=== PATIENT | female | born 1935 | race Asian ===

== ENCOUNTER 2019-03-22 07:49 | Inpatient (IN) | payer OTHER, MEDICAID ==
[2019-03-22] VITALS (11 sets, daily range): BP systolic 90–143; BP diastolic 54–94
[~2019-03-22] VITALS: Ht 157.5 cm; Wt 54.4 kg
--- NOTE | 2019-03-22 08:12 | NUR ---
LAB AT BEDSIDE
--- NOTE | 2019-03-22 08:20 | NUR ---
PT BROUGHT IN BY [facility] STS THAT PT WAS ALOC. PER [facility] PT WAS GCS3 AND NON VERBAL. PER [facility] PT HAS A GTUBE THAT WAS BACKED UP AND NOTICED SOME FLUIDS COMING FROM PTS MOUTH. IV NOTED ON PTS RIGHT WRIST 24G NON PATENT DATED FROM 03/18/19. PER MEDIC PT HAS PACEMAKER RIGHT UPPER CHEST. UPON ASSESSMENT PT IS GRIMICING AND NOT ANSWERING ANY QUESTIONS. PT HAD SOME FLUIDS COMING FROM MOUTH WHICH WERE A WHITE/YELLOW SUBSTANCE. PT HAS GT NOTED ON MID UPPER ABDOMINAL. PT WILL NOT RESPOND TO QUESTIONS. PT WILL NOT OPEN EYE AND HAS THEM SQUEEZED SHUT. PT HAS MOUTH WIDE OPEN WITH MOANING NOISES. +PEDAL,+CAP REFILL BILATERAL UPPER AND LOWER EXTREMITIES. SKIN WNL. PT SUCTIONED 200ML WHITE/YELLOW FLUIDS. EMT BEDSIDE FOR EKG. WHITE INSERTED. WILL CONTINUE TO MONITOR.
[2019-03-22 08:43] LABS: PLATELET COUNT 343 x10^3mcL (130-400); RED CELL DISTRIBUTION WIDTH 13.9 % (11.5-14.5)
[2019-03-22 08:52] LABS: CALCIUM 9.1 mg/dL (8.5-10.1); CARBON DIOXIDE 32.7 mmol/L (21-32); CHLORIDE SERUM 105 mmol/L (98-107); CREATININE SERUM 0.8 mg/dL (0.6-1.0); GLUCOSE SERUM 150 mg/dL (74-106); POTASSIUM SERUM 4.4 mmol/L (3.5-5.1); SODIUM SERUM 144 mmol/L (136-145)
[2019-03-22 08:55] LABS: ALT/SGPT 7 U/L (14-59); AST/SGOT 12 U/L (15-37)
[2019-03-22 08:56] LABS: ALBUMIN 2.7 g/dL (3.4-5.0)
--- NOTE | 2019-03-22 09:11 | NUR ---
UNABLE TO GIVE PT MED DUE TO PT NOT BEING ABLE TO SWALLOW PILLS. PT HAS GAG REFLUX. PT DAUGHTER REQUESTING TO CRUSH SINEMET 50/200 BUT CANNOT DUE TO ER. DAUGHTER INFORMED [facility] [place] GIVE MED CRUSHED IN GT. DR. KENNEDY INFORMED DAUGHTER WELL. DAUGHTER STS THAT GUADARRAMA ZAC CRUSHES 50/200. PER DAUGHTER PT WAS UP WALKING AND EATING 2 WEEKS AGO. WILL CONTINUE TO MONITOR.
[2019-03-22 09:12] LABS: ALKALINE PHOSPHATASE 66 U/L (46-116); BILIRUBIN TOTAL 0.36 mg/dL (0.20-1.00)
[2019-03-22 09:28] LABS: UA SPECIFIC GRAVITY 1.025 (1.005-1.035); microscopic required? YES; urine erythrocyte NEGATIVE (NEGATIVE)
--- NOTE | 2019-03-22 10:02 | NUR ---
PT STILL HAS MOUTH OPEN WITH SOME MOANING. PER DAUGHTER PT DOES NOT USUALLY BREATH LIKE THIS. EXRTA ABDOMINAL MOVEMENTS WITH BREATHING. DR. KENNEDY INFORMED AND MADE AWARE. SEPSI PROTOCOL IN PLACE. PT ON SECOND LITER.
[2019-03-22 10:03] LABS: BAND NEUTROPHIL 6 % (0-10); BASOPHIL 0 % (0-2); MONOCYTE 5 % (0-7); SEGMENTED NEUTROPHILS 86 % (37-75)
[2019-03-22 10:08] LABS: rbc morphology (normal/abnorm) ABNORMAL (NORMAL)
--- NOTE | 2019-03-22 10:25 | NUR ---
PT HAD MOUTH OPEN WITH EXTRA ABDOMINAL MUSCLES TO BREATH. PT VITALS WERE LOWERING AND MADE MADE AWARE. [address] KENNEDY AWARE OF PT BP 73/34 AND HR 43. RT MADE AWARE OF PT AND CAME TO BEDSIDE. 1029 ATROPINE 0.5 [id number] LEVOPHED 10/ML/HR 1036 DAT 7ML 1037 INTUBATION INITIATED. PT TOLERATED WELL. 10[address]ACED RIGHT SUBCL.
--- NOTE | 2019-03-22 11:00 | NUR ---
PT TOLERATED INTUBATION WELL. FAMILY AT BEDSIDE. VSS. RESP 18BPM ON BPAP. HR 110. BP131/88. +PEDAL PULSES +CAP REFILLL UPPER AND LOWER EXTREMITIES. URINE OUTPUT 1000ML. AT BEDSIDE FOR MSE.
--- NOTE | 2019-03-22 11:15 | NUR ---
PT TOLERATING WELL. VSS. RESP 18BPM. HR 109 BP 127/86. WILL CONTINUE TO MONITOR
--- NOTE | 2019-03-22 11:58 | NUR ---
PT COMFORTABLE WITH SEDATION. NO SIGNS OF DISTRESS. VSS. FAMILY AT BEDSIDE. WILL CONTINUE TO MONITOR.
--- NOTE | 2019-03-22 11:59 | NUR ---
FAMILY STS THAT PT USUALLY ON CPAP AT HOME.
--- NOTE | 2019-03-22 12:22 | NUR ---
RT AT BEDSIDE. SUCTIONED PT.
--- NOTE | 2019-03-22 12:26 | NUR ---
DR. ASHLEY AT BEDSIDE SPEAKING WITH FAMILY.
--- NOTE | 2019-03-22 12:52 | NUR ---
REPORT GIVEN TO ICU NURSE TO ASSUME CARE OF PT.
--- NOTE | 2019-03-22 13:10 | NUR ---
PT TAKEN TO ICU BY MERE PEARL, EMT CURT.
--- NOTE | 2019-03-22 13:44 | NUR ---
PATIENT WAS TRANSPORTED FROM ER TO ICU WITH NO ADVERSE EVENTS. PT WAS TAKEN OFF THE VENT AND TRANSPORTED VIA AMBU BAG, SPO2 REMAINED 96% DURING TRANSPORT. PT WAS THEN PLACED BACK ON THE VENT ONCE IN ICU ON SAME SETTINGS BEFORE. AMBU AND MASK BEDSIDE. VENT IN RED OUTLET IN ICU AND WHEELS LOCKED.
[2019-03-22] MEDS ORDERED: SINEMET 25-1001 TAB GT (13:53)
--- NOTE | 2019-03-22 15:51 | NUR ---
1400 HHN TX MISSED DUE TO UNREVIEWED ORDER/MISSING HHN ORDER.
--- NOTE | 2019-03-22 17:13 | NUR ---
DR CARMEN CALLED, ALL UPDATES PROVIDED. PER DR CARMEN, HE WOULD LIKE TO KEEP VANCOMYCIN AND ALSO ORDER ZOSYN, 3.375 IV Q8.
--- NOTE | 2019-03-22 19:04 | NUR ---
REPORT GIVEN TO GURINDER, ALL QUESTIONS ANSWERED.
--- NOTE | 2019-03-22 19:05 | NUR ---
RECEIVED REPORT FROM JOSELITO PEARL. ASSUMING ALL CARE
--- NOTE | 2019-03-22 19:30 | NUR ---
RECEIVED PT LAYING IN BED. PT IS INTUBATED AND SEDATED ON FENTANYL @ 2 MCG/KG/HR. RSS=4. PT RESPONDS TO TACTILE STIMULI. PT NOT ABLE TO FOLLOW COMMANDS AT THIS TIME. GAG REFLEX PRESENT. PERRLA NOTED BILAT, 3 MM. 7.5 ETT INTACT/SECURED, 22 CM @ LL. LIJ CVC IN PLACE, ALL PORTS PATENT, DRESSING CDI. OGT IN PLACE. SMALL AMOUNT OF BLOOD-TINGED SECRETIONS NOTED WHEN SUCTION. ORAL CARE PROVIDED PER VAP PROTOCOL. BREATHING IS E/U ON VENT. VENT SETTINGS: VCV/AC MODE, RATE 18, FIO2 50%, VT 450, PEEP 6. SYMMETRICAL CHEST EXPANSION NOTED. COURSE CRACKLES NOTED TO BUL AND DIMIN TO BLL. S1/S2 HEART SOUNDS AUSCULTATED. CHEST WALL EQUAL AND SYMMETRICAL. NO S/S OF CP NOTED. HR 87, BP 115/68, MAP 86. PALPABLE PULSES X4 EXTREMITIES. SKIN IS WARM AND DRY. NO EDEMA NOTED. CAP REFILL < 3 SECS. RFA AND LH IV IN PLACE, SALINE LOCKED. NS INFUSING @ 250 ML/HR. GENERALIZED WEAKNESS. PT ON BEDREST. NO JOINT SWELLING/DEFORMITY NOTED. PT NPO AT THIS TIME. PEG NOTED TO LUQ. ABD IS SOFT, ROUND, NONTENDER TO PALPATION. BOWEL SOUNDS ACTIVE X4 QUADRANTS. NO BM NOTED. PT WITH WHITE IN PLACE, DRAINING VIA GRAVITY WITH YELLOW COLORED URINE NOTED. NO LABIAL EDEMA NOTED. ERYTHEMA NOTED TO SACRAL AREA, OPTIFOAM IN PLACE. PT REPOSITIONED Q2H AND PRN FOR COMFORT. AXILLARY TEMP 101. COOLING MEASURES IN PLACE. PT IS CALM AND COOPERATIVE. FAMILY AT BEDSIDE. BED IN LOW POSITION. CALL LIGHT IN REACH. WILL CONT TO MONITOR
--- NOTE | 2019-03-22 19:32 | NUR ---
AXILLARY TEMP 101. PT MEDICATED WITH TYLENOL 650 MG PER EMAR. COOLING MEASURES IN PLACE. WILL CONT TO MONITOR
--- NOTE | 2019-03-22 20:15 | NUR ---
DR. BUTCHER MADE AWARE SINEMET 25/100 MG TAB IS ORDERED FOR 19:30. SINEMET 50/200 MG TAB ORDERED FOR 21:00, MADE AWARE TAB IS CONTROLLED-RELEASED AND PT HAS A PEG. PER DR. BUTCHER, ADMINISTER SINEMET 25/100 MG TAB ONLY.
--- NOTE | 2019-03-22 21:15 | NUR ---
NOTED PT ATTEMPTING TO PULL ON ETT. PT EDUCATED ON IMPORTANCE OF NOT PULLING ON ETT, FAMILY AT BEDSIDE TRANSLATING IN MANDARIN. PT SHAKING HEAD NO. PER FAMILY MEMBERS, THEY WILL STAY WITH THE PT AT BEDSIDE. WILL CONT TO MONITOR.
--- NOTE | 2019-03-22 22:00 | NUR ---
ENTERED PT'S ROOM TO FIND PT ATTEMPTING TO PULL ON ETT. PT EDUCATED ON IMPORTANCE OF NOT PULLING ON TUBE. FAMILY AT BEDSIDE. PER PT'S DAUGHTER, OK TO PLACE PT ON RESTRAINTS. ORDER OBTAINED AND PT PLACED ON BILAT SOFT WRIST RESTRAINTS AT THIS TIME, GOOD CIRCULATION NOTED BILAT.
--- NOTE | 2019-03-22 23:30 | NUR ---
DR. CARMEN AT BEDSIDE. UPDATED ON PT'S STATUS. MADE AWARE PHARMACY DID NOT VERIFY ZOSYN ABX D/T PT'S ALLERGY TO PCN. PER DR. CARMEN, LEE ZOSYN AND ADMINISTER MERREM 500 MG IV Q8H. PER DR. CARMEN, OK TO GIVE MED EVEN THOUGH PT HAS ALLERGY TO PCN. WILL CARRY OUT ORDER
[2019-03-23] VITALS (17 sets, daily range): BP systolic 96–136; BP diastolic 56–77
--- NOTE | 2019-03-23 00:15 | NUR ---
VITAL AF TUBE FEEDING INITIATED AT THIS TIME @ 10 ML/HR WITH 50 CC FWF Q4H VIA PEG. OGT REMOVED AT THIS TIME.
--- NOTE | 2019-03-23 04:15 | NUR ---
TF INCREASED TO 20ML/HR, GRV=0.
[2019-03-23 05:09] LABS: BASOPHIL % 0.1 % (0-2); PLATELET COUNT 214 x10^3mcL (130-400); RED CELL DISTRIBUTION WIDTH 13.8 % (11.5-14.5)
[2019-03-23 05:27] LABS: CALCIUM 7.1 mg/dL (8.5-10.1); CARBON DIOXIDE 25.7 mmol/L (21-32); CHLORIDE SERUM 112 mmol/L (98-107); CREATININE SERUM 0.6 mg/dL (0.6-1.0); GLUCOSE SERUM 127 mg/dL (74-106); POTASSIUM SERUM 3.4 mmol/L (3.5-5.1); SODIUM SERUM 144 mmol/L (136-145)
--- NOTE | 2019-03-23 05:59 | NUR ---
TEMP RECHECKED, 100.1. COOLING MEASURES AND TYLENOL PROVIDED. DR BLOUNT MADE AWARE.
--- NOTE | 2019-03-23 06:00 | NUR ---
TEMP RECHECKED, 100.1. COOLING MEASURES AND TYLENOL PROVIDED.
--- NOTE | 2019-03-23 07:10 | NUR ---
REPORT RECEIVED FROM RYANNE BACA. ALL QUESTIONS ANSWERED.
--- NOTE | 2019-03-23 07:15 | NUR ---
PATIENT IN BED, BED TO THE LOWEST POSITION. PATIENT IS INTUBATED, ETT 7.5 CM AT 22 LL. PATIENT IS SEDATED ON FENTANYL INFUSING AT 2 MCG/KG/HR. RSS: 4 PATIENT IS VENTED ON AC MODE AT A RATE OF 18, FIO2 OF 50%, TIDAL VOLUME OF 450 AND PEEP OF 6. PATIENT IS BREATHING ADEQUATELY AND THERE ARE NO SIGNS OF RESPIRATORY DISTRESS. EKG MONITOR TECH IN PLACE, NSR. PATIENT HAS L SUBCLAVIAN CVC. R UPPER CHEST DEEP STIMULATOR. ABD ROUND AND SOFT. WHITE INTACT AND DRAINING VIA GRAVITY. NO BM PER NIGHT NURSE. PATIENT HAS TUBE FEEDINGS INFUSING AT 20 ML/HR WITH 50 FWF Q4. PATIENT IS ON BILATERAL SOFT WRIST RESTRAINTS. NORMAL SALINE IS INFUSING AT 250 ML/HR.
--- NOTE | 2019-03-23 08:32 | NUR ---
PER RT, PATIENT FIO2 TO 40%. PATIENT STABLE, WILL CONTINUE TO MONITOR.
--- NOTE | 2019-03-23 10:09 | NUR ---
PER RT, PATIENTS FIO2 30%. PATIENT STABLE, WILL CONTINUE TO MONITOR.
--- NOTE | 2019-03-23 11:45 | NUR ---
PATIENT HAD A TEMP OF 100. COOLING MEASURES APPLIED. WILL CONTINUE TO MONITOR.
--- NOTE | 2019-03-23 13:28 | NUR ---
DR STEPHENS AT BEDSIDE. ALL UPDATES PROVIDED. NO FURTHER ORDERS AT THIS TIME.
--- NOTE | 2019-03-23 13:41 | NUR ---
PATIENTS TEMPERATURE 100.6, TWO CONSECUTIVE TIMES. MEDICATED WITH TYLENOL(SEE EMAR) AND COOLING MEASURES APPLIED. WILL CONTINUE TO MONITOR.
--- NOTE | 2019-03-23 15:38 | NUR ---
PER ABDIEL, ROLLER COASTER ENGINEER, HAVE A TELE NEURO DONE, FOR PATIENT, ON INPUT ON CORRECT DOSAGE FOR SINEMET. CALLED TELE NEURO, SPOKE WITH [facility]. PATIENTS H/P, MEDICATION LIST, CURRENT VITALS, RADIOLOGY REPORTS, PROGRESS NOTE, AND PATIENT LABS FAXED OVER TO [facility]: [phone]. WILL AWAIT FAX CONFIRMATION.
--- NOTE | 2019-03-23 17:50 | NUR ---
TELE NEURO COMPLETED AT THIS TIME. SPOKE WITH DR ELEONORA KINGSTON. DR RECOMMEDS THE FOLLOWING: SUM OF THE PATIENTS NORMAL REGIMEN ON SHORT ACTING SINEMET, AND DIVIDE IT BY 5 TIMES A DAY. FRANCINE TABOR AND TIARA AT BEDSIDE, WERE CONFUSED TO WHY THE PATIENT CAN NOT RECEIVE THE LONG ACTING DOSAGE. THE DR EXPLAINED TO THE PATIENT THAT IT CAN NOT BE CRUSHED. ALSO THE DR EXPLAINED THAT HE DOES NOT THINK THAT SINEMET WILL CURE THE PATIENTS PROBLEM. THE DOCTOR EXPLAINED THAT SEPSIS AND INTUBATION IS THE CURRENT PROBLEM. THE GOAL FOR THE PATIENT IS TO GET THE SEPSIS UNDER CONTROL, AND EVENTUALLY REMOVE THE PATIENT FROM THE VENT. FRANCINE MENJIVAR AND SHARONA UNDERSTOOD. NO FURTHER QUESTIONS OR ORDERS AT THIS TIME. WILL NOTIFY NOE MEADOWS.
--- NOTE | 2019-03-23 18:00 | NUR ---
ABDIEL DEBARKER OPERATOR NOTIFIED. PER ABDIEL FOLLOW UP WITH PHARMACY AND ALSO CANCEL NS 250ML/HR. NO FURTHER ORDERS AT THIS TIME.
--- NOTE | 2019-03-23 18:13 | NUR ---
PHARMACIST NOTIFIED AT THIS TIME. PER PHARMACIST: HAVE FAMILY BRING IN SHORT ACTING SINEMET HOME MED, PHARMACIST WANTS TO CONFIRM THE DOSAGE THAT THE PATIENT WAS RECEIVING. FAMILY MADE AWARE, AND PATIENTS WILL BRING.
--- NOTE | 2019-03-23 18:18 | NUR ---
PHARMACY CALLED AT THIS TIME, AND NOTIFIED THAT THERE IS ONLY 50 MINS LEFT FOR THE FENANYL DRIP AT THIS TIME. PER PHARMACY, WILL START TO MIX BAG.
--- NOTE | 2019-03-23 18:35 | NUR ---
PER RT FIO2 AT 30%. PATIENT STABLE, WILL CONTINUE TO MONITOR.
--- NOTE | 2019-03-23 19:04 | NUR ---
REPORT GIVEN TO RYANNE BACA. ALL QUESTIONS ANSWERED.
--- NOTE | 2019-03-23 19:30 | NUR ---
REC'D REPORT FROM JOSELITO PEARL TO ASSUME CARE. PT INTUBATED AND SEDATED ON FENTANYL 1 MCG/KG/HR WITH RSS 4. PERRLA NOTED. UNABLE TO FOLLOW COMMANDS. 7.5 ETT SECURED, 22 CM @ LL. NO JVD NOTED. TRACHEA MIDLINE. EENT FREE OF DISCHARGE. ETT TO VENT: AC MODE RATE 18, TV 450, PEEP 6, FIO2 30%. CHEST RISE EQUAL AND SYMMETRICAL. LUNG SOUNDS CLEAR BUL, DIM BASES. OIL TANKER CAPTAIN IN PLACE SHOWING NSR. BP 129/73 MAP 97, HR 82. CHEST WALL STABLE. LEFT SUBCLAVIAN CVC, INTACT, PORTS PATENT. PULSES PALPABLE X4. CAP REFILL < 3 SECS. NO EDEMA NOTED. IVF NS INFUSING @ 70ML/HR. HEPARIN SQ ORDERED FOR DVT PROPHYLAXIS. REQUIRES TOTAL CARE ASSISTANCE. TURNED AND REPOSITIONED Q2H FOR PRESSURE RELIEF. BUE SOFT WRIST RESTRAINTS FOR PT SAFETY. LUQ PEG TUBE INTACT AND PATENT. VITAL AF INFUSING @30 ML/HR, FWF 50ML Q4H.ABD ROUND, SOFT, NONTENDER TO TOUCH. BOWEL SOUNDS ACTIVE. NO EPISODES OF N/V NOTED. F/C INTACT AND DRAINING VIA GRAVITY YELLOW COLORED URINE. NO VAGINAL BLEEDING OR DISCHARGE NOTED. ERYTHEMA TO SACRAL AREA. SKIN WARM DRY TO TOUCH. TEMP 100.5 F, TYLENOL AND COOLING MEASURES PROVIDED. RIGHT UPPER CHEST DEEP STIMULATION FOR PARKINSONS IN PLACE. POSITIVE FAMILY SUPPORT AT BEDSIDE. ALL NEEDS MET AT THIS TIME. CONTACT PRECAUTIONS APPLIED AND MAINTAINED IN PLACE FOR HX MDRO. WILL CONTINUE TO MONITOR.
--- NOTE | 2019-03-23 22:33 | NUR ---
PT SEEN SB WITH HR 47-50. DR CANCINO MADE AWARE. STATES WILL ORDER EKG ON CONTINUE TO MONITOR. FENTANYL TITRATED TO 0.5 MCG/KG/HR.
--- NOTE | 2019-03-23 23:23 | NUR ---
REPORTED PTS EKG TO DR CANCINO, MADE AWARE PT WITH CONTINUED EPISODES OF BRADYCARDIA 47-50. NO NEW ORDERS GIVEN. DR CANCINO STATES CONTINUE TO MONITOR.
--- NOTE | 2019-03-23 23:30 | NUR ---
PTS HR 46-50, FENTANYL TURNED OFF AT THIS TIME. FLACC=0. RSS=4.
[2019-03-24] VITALS (19 sets, daily range): BP systolic 95–145; BP diastolic 33–87
--- NOTE | 2019-03-24 00:04 | NUR ---
DR CARMEN AT BEDSIDE. MADE AWARE REGARDING EPISODES OF ELEVATED TEMP. CONTINUE SAME ATBS AND CONTINUE TO MONITOR.
--- NOTE | 2019-03-24 03:13 | NUR ---
TEMP 100.0 F, COOLING MEASURES PROVIDED WITH TYLENOL. PTS DAUGHTER AT BEDSIDE INFORMED DO NOT PUT WARM BLANKETS ON PT D/T ELEVATED TEMP, VERBALIZED UNDERSTANDING.
--- NOTE | 2019-03-24 04:44 | NUR ---
COOL BED BATH PROVIDED. NO BM NOTED. LINENS CHANGED. F/C AND VAP CARE PROVIDED. TURNED AND REPOSITIONED Q2H FOR PRESSURE RELIEF.
--- NOTE | 2019-03-24 05:13 | NUR ---
PT AWAKE WITH EYES OPEN, RESTLESS, BP 151/74. FENTANYL TURNED ON @ 0.5 MCG/KG/HR.
[2019-03-24 05:47] LABS: PLATELET COUNT 186 x10^3mcL (130-400)
[2019-03-24 05:55] LABS: BASOPHIL % 0 % (0-2)
[2019-03-24 05:57] LABS: CALCIUM 7.4 mg/dL (8.5-10.1); CARBON DIOXIDE 27.3 mmol/L (21-32); CHLORIDE SERUM 108 mmol/L (98-107); CREATININE SERUM 0.6 mg/dL (0.6-1.0); GLUCOSE SERUM 129 mg/dL (74-106); MAGNESIUM 2.1 mg/dL (1.8-2.4); SODIUM SERUM 143 mmol/L (136-145)
[2019-03-24 06:02] LABS: POTASSIUM SERUM 2.8 mmol/L (3.5-5.1)
--- NOTE | 2019-03-24 06:45 | NUR ---
SPOKE TO DR CANCINO MADE AWARE PHARMACY STATED SINEMET DOSE IS STILL UNCLEAR AND PENDING. DR CANCINO STATES WILL LET ABDIEL WIRE WEB WORKER AWARE TO CALL PHARMACY ONCE SHE GETS HERE.
--- NOTE | 2019-03-24 07:00 | NUR ---
PT ENDORSE TO ME THIS MORNING TO ASSUME CARE. PT CURRENTLY REMAINS INTUBATED AND DEDATED ON FENTANYL AT .5 MCG/KG/HR. PERRLA NOTED. UNABLE TO FOLLOW SIMPLE COMMANDS. 7.5 ETT SECURED, 22CM AT LL. NO JVD NOTED. TARACHEA MIDLINE NOTED. EENT FREE OF DISCHARGE OF DRAINAGE. ETT TO VENT: MODE RATE 18, T V450, PEEP 6, FIO2 30% WITH CHEST RISE EQUAL AND SYMMETRICAL. BREATHING EVEN AND UNLABORED ON RA, NO ACUTE RESP DISTRESS NOTED. CARDIC MONITOR SHOWING BP 121/68, MAP 94, HR 70,RESP 17. CHEST WALL STABLE. LEFT SUBCLAVIAN CVC, INTACT AND PATENT, PORTS PATENT. IV INFUSING NS AT 70ML/HR, NO REDNDSS OR SWELLING NOTED. WHITE INTACT AND PATENT, DRAINING LIGHT YELLOW NOTED. LUQ PEG TUBE INFUSING AT 30ML/HR/TOLERATING WELL. ABD SOFT AND ROUND/ BOWEL SOUNDS ACTIVE IN ALL FOUR QUADS. SKIN WARM TO TOUCH AND INTACT. RIGHT UPPER DEEP STIMULATION FOR PARKINSONS IN PLACE. DAUGHTER AT BEDSIDE. CONTACT PREC INPLACE FOR HX MDRO. WILL CONTINUE TO MONITOR.
--- NOTE | 2019-03-24 10:25 | NUR ---
PT STARTED TO GE ANXIOUS AND AGITATED/ RESTLESS, INCREASED FENTALYL FROM .5 MCG/KG/HR AND INCREASE TO 1MCG/KG/HR. DAUGHER AT BEDSIDE. WILL CONTINUE TO MONITOR.
--- NOTE | 2019-03-24 14:00 | NUR ---
PEG FEEDING TUBING CHANGED, CURRENTLY INFUSING AT 30ML/HR AT GOAL.
--- NOTE | 2019-03-24 15:11 | NUR ---
PT IS ANXIOUS, AGITATED AND THRASHING AROUND SIDE TO SIDE IN BED, ATTEMPING TO PULL OUT VENT AND IVS. AJUSTED FENTALYL DRIP FROM 1 MCG/KG/HR TO 1.5 MCG/KG/HR. CHARGE SHARONA AWARE AND TRAFFIC EXPERT MUTUC AWARE AND RECOMMENDED VERSED DRIP. WILL CONTINUE TO MONITIOR.
--- NOTE | 2019-03-24 16:02 | NUR ---
PT CONTINUES TO BE ANXIOUS, AGITATED AND THRASHING SIDE TO SIDE IN BED TRYING TO PULL OUT IV AND VENT. PER TELECOMMUNICATIONS CLERK MUTUC STARTED PT ON VERSED DRIP AT 1ML/HR, TOLERATING WELL. AND DROPED FENTALYL DRIP BACK TO 1 MCG/KG/HR. FAMILY AT BEDSIDE. WILL CONTINUE PLAN OF CARE.
--- NOTE | 2019-03-24 17:59 | NUR ---
WHITE CARE DONE.
--- NOTE | 2019-03-24 18:57 | NUR ---
WILL ENDORSE PT TO INCOMING RN.
--- NOTE | 2019-03-24 19:00 | NUR ---
PT ENDORSE TO RYANNE OSEGUERA FOR CONTINUUM OF CARE.
--- NOTE | 2019-03-24 19:30 | NUR ---
REC'D REPORT FROM CHELITA PEARL TO ASSUME CARE. PT INTUBATED AND SEDATED ON FENTANYL 1 MCG/KG/HR, VERSED 1 MG/HR WITH RSS 4. PERRLA NOTED. UNABLE TO FOLLOW COMMANDS. 7.5 ETT SECURED, 22 CM @ LL. NO JVD NOTED. TRACHEA MIDLINE. EENT FREE OF DISCHARGE. ETT TO VENT: AC MODE RATE 18, TV 450, PEEP 6, FIO2 30%. CHEST RISE EQUAL AND SYMMETRICAL. LUNG SOUNDS CLEAR BUL, DIM BASES. SUBSTATION SUPERINTENDENT IN PLACE SHOWING NSR. BP 129/73 MAP 97, HR 82. CHEST WALL STABLE. LEFT SUBCLAVIAN CVC, INTACT, PORTS PATENT. PULSES PALPABLE X4. CAP REFILL < 3 SECS. NO EDEMA NOTED. IVF NS INFUSING @ 70ML/HR. HEPARIN SQ ORDERED FOR DVT PROPHYLAXIS. REQUIRES TOTAL CARE ASSISTANCE. TURNED AND REPOSITIONED Q2H FOR PRESSURE RELIEF. BUE SOFT WRIST RESTRAINTS FOR PT SAFETY. LUQ PEG TUBE INTACT AND PATENT. VITAL AF INFUSING @30 ML/HR, FWF 50ML Q4H.ABD ROUND, SOFT, NONTENDER TO TOUCH. BOWEL SOUNDS ACTIVE. NO EPISODES OF N/V NOTED. F/C INTACT AND DRAINING VIA GRAVITY YELLOW COLORED URINE. NO VAGINAL BLEEDING OR DISCHARGE NOTED. ERYTHEMA TO SACRAL AREA. SKIN WARM DRY TO TOUCH. RIGHT UPPER CHEST DEEP STIMULATION FOR PARKINSONS IN PLACE. POSITIVE FAMILY SUPPORT AT BEDSIDE. ALL NEEDS MET AT THIS TIME. WILL CONTINUE TO MONITOR.
--- NOTE | 2019-03-24 21:45 | NUR ---
PTS 2100 SINEMET (3 TABS) ORDER EXPLAINED TO DAUGHTER AT BEDSIDE. PER PTS DAUGHTER 3 TABS IS TOO MUCH, GIVE ONLY 2 TABS. 2 TABS GIVEN PER DAUGHTERS REQUEST.
--- NOTE | 2019-03-24 22:59 | NUR ---
DR CARMEN AT BEDSIDE, REPORTED URINE AND RESP CULTURE RESULTS. VERBAL ORDER GIVEN TO DC MERREM AND VANCO IV. ORDER CLINDAMYCIN 600MG IV Q8H, LEVAQUIN 500MG IV QD, CONTINUE DIFLUCAN 200MG VIA OGT. ORDER NOTED AND CARRIED OUT.
[2019-03-25] VITALS (18 sets, daily range): BP systolic 92–140; BP diastolic 54–89
[2019-03-25 05:50] LABS: BASOPHIL % 0.4 % (0-2); PLATELET COUNT 168 x10^3mcL (130-400); RED CELL DISTRIBUTION WIDTH 14.1 % (11.5-14.5)
[2019-03-25 06:11] LABS: CALCIUM 7.5 mg/dL (8.5-10.1); CARBON DIOXIDE 28.7 mmol/L (21-32); CHLORIDE SERUM 108 mmol/L (98-107); CREATININE SERUM 0.6 mg/dL (0.6-1.0); GLUCOSE SERUM 116 mg/dL (74-106); POTASSIUM SERUM 3.1 mmol/L (3.5-5.1); SODIUM SERUM 141 mmol/L (136-145)
--- NOTE | 2019-03-25 06:40 | NUR ---
REPORTED K+ 3.[address] CANCINO, AWAITING FOR FURTHER ORDERS
--- NOTE | 2019-03-25 07:15 | NUR ---
REPORT GIVEN TO ASHLI PEARL TO ASSUME CARE
--- NOTE | 2019-03-25 07:15 | NUR ---
SEDATION WAS HELD FOR VACATION.
--- NOTE | 2019-03-25 07:33 | NUR ---
THE PATIENT IS BITING ETT TO ACTIVATE THE VENT ALARM; SEDATION RESUMED WITH FENTANYL AT 0.75 MCG/KG/HR AND VERSED AT 0.75MG/HR.
--- NOTE | 2019-03-25 07:45 | NUR ---
THE PATIENT REMAINS INTUBATED AND SEDATED WITH FENTANYL AT 0.75MCG/KG/HR AND VERSED AT 0.75MG/HR. PATIENT RESPONSIVE TO TACTILE STIMULI BUT UNABLE TO FOLLOW ANY SIMPLE COMMANDS. FENTANYL TITRATED DOWN TO 0.5MCG/KG/HR AND VERSED AT 0.5MG/HR. TO REACH THE GOAL RSS 4. ETT 7.5 SECURED AT 22CM AT LIPLINE. ETT TO VENT VIA VCV/AC MODE: FIO2 30%, RATE 18, VT 450, PEEP 5. BREATHING EVEN/UNLABORED. DEEP STIMULATOR TO RIGHT UPPER CHEST. CVC TO LEFT UPPER CHEST WITH DRESSING INTACT. PEG TO LUQ; PLACEMENT VERIFIED WITH SOME AIR BOLUS. RESIDUAL 40ML AND REPLACED. PEG TO TUBE FEEDING WITH VITAL AT 30ML/HR. FREE WATER FLUSH AT 50ML/Q4HR. WHITE CATH TO GRAVITY DRAINING YELLOW URINE. PATIENT IS ON SOFT WRIST RESTRAINTS TO PREVENT THE PATIENT FROM PULLING AT TUBE/LINE. WILL RELEASE THE RESTRAINTS FOR ROM Q2HR/PRN. CALL LIGHT WITHIN REACH. SIDE RAILS UP X3. BED IS AT LOWEST POSITION. THE DAUGHTER IS AT BEDSIDE.
--- NOTE | 2019-03-25 08:15 | NUR ---
DR. LE AND NOE MEADOWS ARE AT BEDSIDE SEEING THE PATIENT AND TALKING TO THE DAUGHTER, SAHRONA.
--- NOTE | 2019-03-25 11:32 | NUR ---
NOE MEADOWS WAS INFORMED THAT THE SPUTUM CULTURE: THE PATIENT IS RESISTANT TO CLINDAMYCIN.
--- NOTE | 2019-03-25 12:04 | NUR ---
RT DEMETRIA CHANGED THE VENT MODE TO CPAP 15/5 AND FIO2 30%. ENCOURAGING THE DAUGHTER, TIARA TO REMIND THE PATIENT OF DEEP BREATHING.
--- NOTE | 2019-03-25 12:46 | NUR ---
Initial Nutrition Assessment- Dx: Sepsis, Altered Mental Status, Parkinson's PMHx: HTN, Parkinson's Disease, Hx Stroke PSHx: Cholecystectomy, Thyroidectomy, deep brain stimulator implantation, gastrostomy tube placement Labs: K 3.1L, BG 116H, Ca 7.3L, H/H 9.6L/28L Meds:Pepcid, Vancomycin, Zofram Heparin, Nutrition Support: Vital AF 1.2 at 30ml/hr (goal rate), FWF 50cc Q 4h via OGT x2 days Residuals: 40cc per RN report I and O: (03/25) 3037/4200 -[phone]; (03/24)3854/2400 +1454, (03/23)3584/1475 +[phone] Ht:5'2 Wt: 120 lb, 54 kg BMI: 24 kg/m2 (Underweight for age) IBW: 110 lb/50 kg %IBW: 109 UBW: 1118-120 lb Age: 83 yrs old/Female Food Allergies: none Skin: erythema to sacral area. Rick: 12 Edema: none GI: abd is soft and non-tender w/ active bowel sounds. Last BM: March 23, 2019 Pt on sedated on vent, EN infusing as ordered, pt w/ soft srist restraints for safety. RN reported residual of 40cc this morning, pt is tolerating EN well. Daughter (Pattie) at bedside answered RD interview. She was able to provide some information but was limited d/t some language barrier. She had a lot of questions about EN support, and GT site care. RD answered all her questions and provided contact information. An increase in EN infusion rate is warranted to better meet estimated needs. Problem with: N/V: no D/C:no Problems with: Chewing: yes Swallowing: yes Current appetite: n/a on EN support Recent wt change: none %wt change: n/a Vitamin/Supplement use: MVI Special diet at home: EN support, formula and rate was unknown to daughter.0 Physical activity: none Education: is not appropriate at this time. Estimated Nutritional Needs Based on actual body weight 54 kg: Ve 8.51, T: 37.8 Energy: 1290 kcal/d (PSU 2003b for ICU pt on vent support) Protein: 81-108 g/d (1.5-2 g/kg- for sepsis) Fluid: 1350 ml/d (1 ml/kcal) or per doctor Nutrition Diagnosis 1. Increased nutrient needs r/t metabolic demands AEB estimated calories and protein for sepsis and vent support. Intervention 1. Vital AF 1.2 at 45ml/hr (goal rate), FWF 115ml Q6H via OGT. Provides: 1296 kcal, 81 gm protein and 1336ml free water daily Meets: 100% of calorie needs and 75% of upper end of estimated protein needs. Monitor/Evaluate Goal: TF intake at least 75% estimated needs Monitor: TF tolerance, Labs, GI function, weights F/U in 2-3 days as high risk (03/27-03/28)
--- NOTE | 2019-03-25 13:15 | NUR ---
DOUBLE CHECK WITH NOE MEADOWS ABOUT ABX CLINDAMYCIN: YU WANTS TO CONTINUE THE MED FOR THE PATIENT AND WAITING FOR DR. CARMEN TO ADJUST THE ABX.
--- NOTE | 2019-03-25 14:15 | NUR ---
DR. ASHLEY IS AT BEDSIDE EXAMING THE PATIENT AND TALKING TO THE DAUGHTER, TIARA.
--- NOTE | 2019-03-25 14:27 | NUR ---
THE PATIENT IS TIRED AND HAS EPISODES OF APNEA. RT DEMETRIA SWITCHES THE CPAP BACK TO VCV/AC MODE: FIO2 30%, RATE 18, VT 450, PEEP 5.
--- NOTE | 2019-03-25 14:41 | NUR ---
NOTED THRASHING IN BED AND CLAMPING DOWN ON ETT INTERMITTENTLY. FAMILY AT BEDSIDE AND REPORTS THAT THIS HAS HAPPENED BEFORE USUALLY 20-30 MINS AFTER SINAMET ADMINISTRATION WHEN DOSAGE IS TOO HIGH OR TOO LOW.
--- NOTE | 2019-03-25 15:00 | NUR ---
AIR MATTRESS SET UP FOR THE PATIENT. PATIENT IS BITING THE TUBE AND RESTLESS/AGITATED; VERSED TITRATED FROM 0.5 MG/HR UP TO 1MG/HR.
--- NOTE | 2019-03-25 16:02 | NUR ---
NEW BAG AND TUBING OF VERSED CHANGED FOR THE PATIENT DUE TO EXPRIATION OF THE OLD VERSED BAG.
--- NOTE | 2019-03-25 17:15 | NUR ---
PATIENT HAS BEEN GIVEN A BED BATH; WHITE CARE PROVIDED TO THE PATIENT. DRESSING AT CENTRAL LINE SITE HAS BEEN CHANGED VIA ASEPTIC TECHNIQUE.
--- NOTE | 2019-03-25 18:58 | NUR ---
THE PATIENT REMAINS ON VENT VIA VCV/AC MODE: FIO2 30%, RATE 18, VT 450, PEEP 5 AND SEDATED WITH FENTANYL AT 0.5MCG/KG/HR AND VERSED 1MG/HR. TUBE FEEDING WITH VITAL AF AT 30ML/HR. WILL ENDORSE CARE TO ONCOMING RN.
--- NOTE | 2019-03-25 20:00 | NUR ---
RECEIVED PT IN BED, PT APPEARS RESTLESS. PT IS ON VERSED AT 1MG/HR AND INCREASED TO 2MG/ML AT THIS TIME. PT ON FENTANYL AT 0.5 MCG/KG/HR INCREASED TO 0.7MCG/KG/HR. PT IS INTUBATED WITH VENT SETTINGS ON AC MODE, FIO2 OF 30%, PEEP 5, AND RATE OF 18. BS ACTIVE IN ALL FOUR QUADS. PT WITH PEG TUBE INFUSING VITAL AT 30ML/HR. NO RESIDUAL NOTED. CENTRAL LINE TO LEFT UPPER CHEST WALL, INFUSING NS AT 70ML/HR, WELL OTHER DRIPS MENTIONED. WHITE DRAINING TO GRAVITY, CLEAR YELLOW. PT ON AIR MATTRESS. REPOSITIONED AT THIS TIME. FAMILY AT BEDSIDE. WILL CONTINUE TO MONITOR CLOSELY.
--- NOTE | 2019-03-25 22:00 | NUR ---
PER FAMILY, DAUGHTER, ONLY GIVEN 2 OF 3 TAB OF SINEMET TONIGHT, D/T FREQUENT MOVEMENT AND RESTLESSNESS. REPOSITIONED PT AT THIS TIME. VENT SETTINGS UNCHANGED. WILL CONTINUE TO MONITOR CLOSELY.
[2019-03-26] VITALS (20 sets, daily range): BP systolic 90–136; BP diastolic 54–77
--- NOTE | 2019-03-26 | NUR ---
SHIFT ASSESSMENT COMPLETED. REPOSITIONED PT AT THIS TIME. DAUGHTER REMAINS AT BEDSIDE. VENT SETTINGS UNCHANGED. SUCTION PT PRN. WILL CONTINUE TO MONITOR CLOSELY.
--- NOTE | 2019-03-26 03:45 | NUR ---
REPOSITIONED PT AT THIS TIME. SHIFT ASSESSMENT COMPLETED. DAUGHTER REMAINS AT BEDSIDE. NEW GT FEEDING HUNG AND TUBING CHANGED. WILL CONTINUE TO MONITOR CLOSELY.
--- NOTE | 2019-03-26 04:11 | NUR ---
RECEIEVED PT REPORT FROM RYANNE SEGUNDO. QUESTIONS AND CONCERNS ADDRESSED.
[2019-03-26 05:32] LABS: BASOPHIL % 0.8 % (0-2); PLATELET COUNT 156 x10^3mcL (130-400); RED CELL DISTRIBUTION WIDTH 14.3 % (11.5-14.5)
[2019-03-26 05:51] LABS: CALCIUM 7.2 mg/dL (8.5-10.1); CARBON DIOXIDE 24.6 mmol/L (21-32); CHLORIDE SERUM 106 mmol/L (98-107); CREATININE SERUM 0.6 mg/dL (0.6-1.0); GLUCOSE SERUM 106 mg/dL (74-106); POTASSIUM SERUM 3.7 mmol/L (3.5-5.1); SODIUM SERUM 138 mmol/L (136-145)
--- NOTE | 2019-03-26 07:10 | NUR ---
FENTANY AND SEDATION TURNED OFF FOR VACATION. THE PATIENT IS SLEEPING IN BED AT THIS TIME.
--- NOTE | 2019-03-26 07:30 | NUR ---
PATIENT RESPONSIVE TO TACTILE STIMULI AND FOLLOWS COUPLE OF SIMPLE COMMANDS. THEN PATIENT RESTLESS AND BITING VENT; SEDATION RESUMED WITH FENTANYL AT 0.5MCG/KG/HR AND VERSED AT 0.5MG/HR. TELE # 5 READS SINUS RHYTHMS AT THIS TIME. VENT VIA VCV/AC MODE: FIO2 30%, RATE 18, VT 450, AND PEEP 5. PEG TUBE TO TUBE FEEDING WITH VITAL AT 30ML/HR. RESIDUAL 110ML REPLACED. CVC TO LEFT UPPER CHEST WITH DRESSING INTACT. IVF NS AT 70ML/HR. WHITE CATH TO GRAVITY DRAINING YELLOW URINE. PATIENT IS ON AIR MATTRESS. WILL RELEASE SOFT WRIST RESTAINTS FOR ROM Q2HR/PRN. BED IS AT LOWEST POSITION. THE DAUGHTER, SHARONA AT BEDSIDE.
--- NOTE | 2019-03-26 10:23 | NUR ---
BAILEY BAIRD AT BEDSIDE FOR WEANING TRIALS. PATIENT'S DAUGHTER AT BEDSIDE. SEDATION TITRATED OFF AT THIS TIME.
--- NOTE | 2019-03-26 11:10 | NUR ---
DR. LE IS AT BEDSIDE SEING THE PATIENT AND TALKING TO SHARONA, THE DAUGHTER.
--- NOTE | 2019-03-26 11:25 | NUR ---
THE PATIENT IS SO RESTLESS; MOVING IN BED AND ARMS PULLING TOWARD TUBE/LINE. DR. LE IS AT BEDSIDE AND INSTRUCTED TO RESUME SEDATION WITH FENTANYL AT 1MCG/KG/HR AND VERSED AT 1MG/HR. BOTH RESUMED PER DR. LE.
--- NOTE | 2019-03-26 12:34 | NUR ---
RT BAILEY CHANGED VENT MODE TO CPAP 12/5 AND FIO2 30%. INSTRUCTING THE AND DAUGHTER, SHARONA TO REMIND THE PATIENT OF HAVING DEEP BREATHING WHILE ON CPAP.
--- NOTE | 2019-03-26 13:00 | NUR ---
NEW BAG AND TUBING OF VERSED CHANGED FOR THE PATIENT.
--- NOTE | 2019-03-26 17:10 | NUR ---
THE PAITENT WAS GIVEN A BEDBATH; LINEN AND GOWN CHANGED. WHITE CARE AND CENTRAL LINE CARE PROVIDED TO THE PATIENT PER PROTOCOL.
--- NOTE | 2019-03-26 18:14 | NUR ---
DEMETRIA RT CHANGES THE CPAP MODE OF THE VENT BACK TO VCV/AC MODE: FIO2 30%, RATE 18, VT 450, PEEP 5.
--- NOTE | 2019-03-26 18:35 | NUR ---
PATIENT RESTLESS AND CLAMPING ON TUBE. THE DAUGHTER, TIARA SAID, "IT USUALLY HAPPENS AFTER 20 TO 40 MINUTES OF TAKING SINEMET." (SINEMET 10/100 X2 TABS WAS MEDICATED TO THE PATIENT AT 1800). THE PATIENT WAS EXPLAINED AND COMFORTED BY TIARA AND MYSELF. SHE WAS CALM DOWN LITTLE. SEDATION MAINTAINS.
--- NOTE | 2019-03-26 19:06 | NUR ---
RECEIVED REPORT FROM ASHLI PEARL. WILL RESUME CARE.
--- NOTE | 2019-03-26 22:13 | NUR ---
SINEMET 3 TABS SCEDULED FOR 2199. ONLY GAVE 2 TABS PER DAUGHTER REQUEST. DAUGHTER STATES "THE DOSE IS TOO STRONG AT NIGHT AND 40 MINUTES AFTER MEDICATION ADMINISTRATION HER UPPER BODY IS CONTANSTANTLY MOVING". WILL MAKE MD AWARE.
--- NOTE | 2019-03-26 22:30 | NUR ---
VERSED INCREASED FROM 0.5 MG/HR TO 1.5MG/HR TO ACHIEVE RSS 4.
[2019-03-27] VITALS (17 sets, daily range): BP systolic 72–140; BP diastolic 52–91
--- NOTE | 2019-03-27 04:50 | NUR ---
VERSED DECREASED FROM 1.5 MG/HR TO 0.5MG/HR TO ACHIEVE RSS 4.
[2019-03-27 05:36] LABS: CALCIUM 7.7 mg/dL (8.5-10.1); CARBON DIOXIDE 20.6 mmol/L (21-32); CHLORIDE SERUM 106 mmol/L (98-107); CREATININE SERUM 0.6 mg/dL (0.6-1.0); GLUCOSE SERUM 106 mg/dL (74-106); MAGNESIUM 2.3 mg/dL (1.8-2.4); POTASSIUM SERUM 4.1 mmol/L (3.5-5.1); SODIUM SERUM 136 mmol/L (136-145)
--- NOTE | 2019-03-27 05:40 | NUR ---
PT REMAINS INTUBATED AND SEDATED ON VERSED AT 0.5MG/HR AND FENTANYL AT 0.5MCG/KG/HR TO ACHIEVE RSS 4. VENT VCV-AC MODE WITH SETTINGS AT FIO2 30%, VT 450, R 18, PEEP 5. BREATHING E/U. NO S/SX OF ANY DISTRESS OR DISCOMFORT NOTED. PT COMFORTABLE IN BED. WHITE CATH CARE PROVIDED. 1340CC OF YELLOW URINE OUTPUT NOTED. CHLORHEXIDINE WIPES TO L SUBCLAVIAN IV SITE. ALL LINENS AND GOWN CHANGED. PT REPOSITIONED AND FLOATED ON PILLOWS, BONY PROMINENCES OFFLOADED. BED IN LOW POSITION. CALL LIGHT WITHIN REACH. WILL CONTINUE TO MONITOR.
[2019-03-27 05:41] LABS: BASOPHIL % 0.4 % (0-2); PLATELET COUNT 158 x10^3mcL (130-400); RED CELL DISTRIBUTION WIDTH 13.4 % (11.5-14.5)
--- NOTE | 2019-03-27 07:10 | NUR ---
GAVE REPORT TO JUAN PEARL. ALL QUESTIONS AND CONCERNS ADDRESSED.
--- NOTE | 2019-03-27 07:11 | NUR ---
DR. LE AT BEDSIDE TO ASSESS PT. UPDATED ON PT'S STATUS AND CONDITION. PT AWAKENED BY AND THRASHING HEAD FROM SIDE TO SIDE. PER DR. LE CPAP TRIAL WILL BEGIN ONCE PT HAS CALMED DOWN. WILL ATTEMPT AGAIN LATER
--- NOTE | 2019-03-27 08:05 | NUR ---
Derek ARDON VINYL TOP INSTALLER AT BEDSIDE TO ASSESS PT. UPDATED ON PTS STATUS AND CONDITION. LABS REVIEWED. NO NEW ORDERS AT THIS TIME. PLAN OF CARE TO ATTEMPT CPAP TRIAL WHEN PT CALMS.
--- NOTE | 2019-03-27 08:35 | NUR ---
SEDATION OFF AT THIS TIME PENDING CPAP TRIAL
--- NOTE | 2019-03-27 12:35 | NUR ---
Follow-up Nutrition Assessment- Dx: Sepsis, Altered Mental Status, Parkinson's Labs: (03/27) Ca 7.7L, WBC 4.1L, RBC 2.98L, H/H 8.9L/29L Meds: Diflucan, Levaquin, Pepcid, Sinemet, NaCl IV, Zofran, Heparin Current Nutrition Support: Vital AF 1.2 at 30ml/hr (goal rate), FWF 50 cc Q4H via OGT x 4 days. Which provides: 721 kcal, 45 gm protein and 1020ml free water daily. Meets: 61% of estimated needs, 56% of lower end of estimated protein needs. TF intake: (03/27) 638ml, (03/26) 681ml, (03/25) 720ml I and O: (03/27)2763/2400 +363, (03/26) 3037/2650 +387, (03/25) 3037/4200 -1163 Residuals TF: (03/27) 20ml, 10ml, 10ml, (03/26) 30ml, 30ml, 110ml, Weights: (03/27) 62 kg, (03/26) 63.9 kg, (03/25) 69.5 kg, (03/24) 60.1 kg Skin: reddening to coccyx area. Rick: 13 Edema: none Last BM: 03/23/19 per daughter Pattie's report Per RN, pt is being weaned off the vent and sedation. Plan today is CPAP trials. EN regimen being tolerated well, w/ 20ml residual this morning. PEG is intact at L abd area. RD discussed w/ RN pt's last BM record as 03/20/19 and possible need for stool softener. RN to mention rec to MD. Per daughter's report, pt had BM after midnight of admission. RD s/w AREA OPERATIONS DIRECTOR for EN infusion rate increase. (03/27 1140) Estimated Nutritional Needs based on: actual body weigh 54 kg, Ve:8.5 T:37.2 Energy: 1184 kcal/day (PSU 2002b for ICU pt) (Re-calculated) Protein: 81-108 g/day (1.5-2 gm/kg for sepsis) Fluid: 1200 ml/day (1ml/calorie) or per doctor Nutrition Diagnosis 1. Increased nutrient need r/t metabolic demands AEB estimated calories and protein for sepsis. (*ongoing) 2. Inadequate EN infusion r/t current infusion rate AEB current EN regimen meeting >75% of estimated needs. (*new) Intervention 1. Vital AF 1.2 at 45ml/hr (goal rate), FWF 115ml Q6H via GT Provides 1296 kcal, 81 gm protein and 1336ml free water daily. Meets: 109% of calorie needs and 100% of lower end of estimated protein needs. Monitor/Evaluate Previous goal: TF intake at least 75% of estimated needs (not met) Goal: TF at least 80-100% of estimated needs Monitor: TF intake, Labs, GI function, weights, skin integrity F/U in 2-3 days as high risk (03/29-03/30)
--- NOTE | 2019-03-27 15:37 | NUR ---
CPAP COMPLETE AT THIS TIME RR 30s AND PT RESTLESS . PT TOLERATED 4 HOURS. VERSED INITIATED @ 0.5 MG/HR AND FENTANYL INITIATED @ 0.5 MCG/KG/HR.
--- NOTE | 2019-03-27 16:39 | NUR ---
RESUMED CARE FROM RYANNE MARTINEZ. INTUBATED TO VENT NOTED SETTING VT-450, FIO2-30, PEEP-5, RATE-18 TOLERAING WELL. VERSED 0.5MG/HR AND FENTANYL 0.5MCG/HR INFUSING, IVF NS AT 70ML/HR INFUSING WELL. GTUBE FEEDING WITH VITAL AT 30ML/HR WITH FWF AT 50ML/ Q 4HRS. TURNED AND REPOSITIONED, NOTED OPTIFOAM TO COCCYX AREA INPLACE. PATIENT'S SPOUSE AT BEDSIDE.
--- NOTE | 2019-03-27 18:45 | NUR ---
APPEARS MORE RESTLESSNESS, DEYSI SOFT WRIST RESTRAINT INPLACE, TRUCK LOADER AND UNLOADER ERNIE AT BEDSIDE INCREASED VERSED TO 1.0MG/HR AND FENTANYL 1.0MCG/HR. WILL ENDORSE TO NOC.
--- NOTE | 2019-03-27 19:30 | NUR ---
REC'D REPORT FROM LAKIA PEARL TO ASSUME CARE. PT INTUBATED AND SEDATED ON FENTANYL 1 MCG/KG/HR, VERSED 1 MG/HR WITH RSS 4. PERRLA NOTED. UNABLE TO FOLLOW COMMANDS. 7.5 ETT SECURED, 23 CM @ LL. NO JVD NOTED. TRACHEA MIDLINE. EENT FREE OF DISCHARGE. ETT TO VENT: AC MODE RATE 18, TV 450, PEEP 5, FIO2 30%. CHEST RISE EQUAL AND SYMMETRICAL. LUNG SOUNDS RHONCHI BUL, DIM BASES. PUBLIC RELATIONS STUDIES DIRECTOR IN PLACE SHOWING NSR. BP 108/68 MAP 82, HR 77. CHEST WALL STABLE. LEFT SUBCLAVIAN CVC, INTACT, PORTS PATENT. PULSES PALPABLE X4. CAP REFILL < 3 SECS. NO EDEMA NOTED. IVF NS INFUSING @ 70ML/HR. HEPARIN SQ ORDERED FOR DVT PROPHYLAXIS. REQUIRES TOTAL CARE ASSISTANCE. TURNED AND REPOSITIONED Q2H FOR PRESSURE RELIEF. BUE SOFT WRIST RESTRAINTS FOR PT SAFETY. LUQ PEG TUBE INTACT AND PATENT. VITAL AF INFUSING @30 ML/HR, FWF 50ML Q4H. ABD ROUND, SOFT, NONTENDER TO TOUCH. BOWEL SOUNDS ACTIVE. NO EPISODES OF N/V NOTED. F/C INTACT AND DRAINING VIA GRAVITY YELLOW COLORED URINE. NO VAGINAL BLEEDING OR DISCHARGE NOTED. ERYTHEMA TO SACRAL AREA, OPTIFOAM IN PLACE, CDI. SKIN WARM DRY TO TOUCH. RIGHT UPPER CHEST DEEP BRAIN STIMULATION FOR PARKINSONS NOTED. SUPPORT AT BEDSIDE. ALL NEEDS MET AT THIS TIME. WILL CONTINUE TO MONITOR.
[2019-03-28] VITALS (18 sets, daily range): BP systolic 94–129; BP diastolic 55–71
--- NOTE | 2019-03-28 01:30 | NUR ---
PT RESTLESS, REPOSTIONED AT THIS TIME, SEDATION VERSED INCREASED TO 2 MG/HR.
--- NOTE | 2019-03-28 03:30 | NUR ---
PT SEEN SLEEPING, SEDATION VERSED DECREASED TO 1 MG/HR.
--- NOTE | 2019-03-28 05:00 | NUR ---
TOTAL BED BATH PROVIDED WITH CHG WIPES. NO BM NOTED. LINENS CHANGED. REPOSITIONED TO COMFORT.
--- NOTE | 2019-03-28 05:43 | NUR ---
LAB AT BEDSIDE.
[2019-03-28 05:57] LABS: BASOPHIL % 0.5 % (0-2); PLATELET COUNT 159 x10^3mcL (130-400); RED CELL DISTRIBUTION WIDTH 14.5 % (11.5-14.5)
[2019-03-28 05:58] LABS: CALCIUM 7.9 mg/dL (8.5-10.1); CARBON DIOXIDE 24.7 mmol/L (21-32); CHLORIDE SERUM 109 mmol/L (98-107); CREATININE SERUM 0.6 mg/dL (0.6-1.0); GLUCOSE SERUM 115 mg/dL (74-106); POTASSIUM SERUM 3.7 mmol/L (3.5-5.1); SODIUM SERUM 140 mmol/L (136-145)
--- NOTE | 2019-03-28 07:10 | NUR ---
SEDATION TURNED OFF AT THIS TIME PENDING CPAP TRIAL
--- NOTE | 2019-03-28 07:15 | NUR ---
Derek ADRON LOSS PREVENTION AGENT AT BEDSIDE. UPDATED ON PT'S LACK OF BM. STATES SHE WILL INPUT ORDERS FOR STOOL SOFTENER. NO OTHER NEW ORDERS AT THIS TIME. PT TO CPAP TODAY
--- NOTE | 2019-03-28 09:45 | NUR ---
CPAP INITIATED THIS TIME BY LINDA BAIRD. HR 80. PT CALM AND COOPERATIVE. 02 SAT 100%
--- NOTE | 2019-03-28 15:40 | NUR ---
DR. LE AT BEDSIDE SPEAKING WITH FAMILY REGARDING PLAN OF CARE. DAUGHTER WOULD LIKE TO WAIT UNTIL ELDEST DAUGHTER, TIARA, IS PRESENT TO DISCUSS PLAN OF CARE.
--- NOTE | 2019-03-28 17:49 | NUR ---
VCV AC MODE INITIATED AT THIS TIME BY LINDA MURO VERSED REINITATED @ 1 MG/HR AND FENTANYL REINITIATED @ 1 MCG/KG/HR. WILL CONTINUE TO MONITOR
--- NOTE | 2019-03-28 19:30 | NUR ---
REC'D REPORT FROM JUAN PEARL TO ASSUME CARE. PT INTUBATED AND SEDATED ON FENTANYL 1 MCG/KG/HR, VERSED 1 MG/HR WITH RSS 4. PERRLA NOTED. UNABLE TO FOLLOW COMMANDS. 7.5 ETT SECURED, 23 CM @ LL. NO JVD NOTED. TRACHEA MIDLINE. EENT FREE OF DISCHARGE. ETT TO VENT: AC MODE RATE 18, TV 450, PEEP 5, FIO2 30%. CHEST RISE EQUAL AND SYMMETRICAL. LUNG SOUNDS CLEAR BUL, DIM BASES. TRANSFER TABLE OPERATOR IN PLACE SHOWING NSR. BP 101/66 MAP 78, HR 85. CHEST WALL STABLE. LEFT SUBCLAVIAN CVC, INTACT, PORTS PATENT. PULSES PALPABLE X4. CAP REFILL < 3 SECS. NO EDEMA NOTED. IVF NS INFUSING @ 70ML/HR. HEPARIN SQ ORDERED FOR DVT PROPHYLAXIS. REQUIRES TOTAL CARE ASSISTANCE. TURNED AND REPOSITIONED Q2H FOR PRESSURE RELIEF. BUE SOFT WRIST RESTRAINTS FOR PT SAFETY. LUQ PEG TUBE INTACT AND PATENT. VITAL AF INFUSING @30 ML/HR, FWF 50ML Q4H. ABD ROUND, SOFT, NONTENDER TO TOUCH. BOWEL SOUNDS ACTIVE. NO EPISODES OF N/V NOTED. F/C INTACT AND DRAINING VIA GRAVITY YELLOW COLORED URINE. NO VAGINAL BLEEDING OR DISCHARGE NOTED. ERYTHEMA TO SACRAL AREA, OPTIFOAM IN PLACE, CDI. SKIN WARM DRY TO TOUCH. RIGHT UPPER CHEST DEEP BRAIN STIMULATION FOR PARKINSONS NOTED. SUPPORT AT BEDSIDE. ALL NEEDS MET AT THIS TIME. WILL CONTINUE TO MONITOR.
--- NOTE | 2019-03-28 20:10 | NUR ---
GENESIS RT AT BEDSIDE PROVIDING BREATHING TX.
--- NOTE | 2019-03-28 22:37 | NUR ---
DR CARMEN AT BEDSIDE, UPDATED ON STATUS, NO NEW ORDERS GIVEN.
[2019-03-29] VITALS (19 sets, daily range): BP systolic 11–135; BP diastolic 57–81
--- NOTE | 2019-03-29 00:30 | NUR ---
PT SEEN SLEEPING AT THIS TIME. NO ACUTE DISTRESS NOTED. NO SOB NOTED, RESPS E/U.
--- NOTE | 2019-03-29 04:30 | NUR ---
TOTAL BED BATH PROVIDED. VAP CARE PROVIDED. F/C CARE PROVIDED. LINENS CHANGED. PT REPOSITIONED TO COMFORT.
[2019-03-29 06:00] LABS: BASOPHIL % 0.3 % (0-2); PLATELET COUNT 155 x10^3mcL (130-400); RED CELL DISTRIBUTION WIDTH 14.7 % (11.5-14.5)
[2019-03-29 06:14] LABS: CALCIUM 8.3 mg/dL (8.5-10.1); CARBON DIOXIDE 21.4 mmol/L (21-32); CHLORIDE SERUM 108 mmol/L (98-107); CREATININE SERUM 0.5 mg/dL (0.6-1.0); GLUCOSE SERUM 115 mg/dL (74-106); POTASSIUM SERUM 3.7 mmol/L (3.5-5.1); SODIUM SERUM 140 mmol/L (136-145)
--- NOTE | 2019-03-29 07:45 | NUR ---
PATIENT IN BED, BED TO THE LOWEST POSITION. PATIENT IS INTUBATED, 7.5 CM AT 23 LL. PATIENT IS SEDATED ON FENTANYL INFUSING AT 1 MCG/KG/HR AND VERSED INFUSING AT 1 MG/HR, RSS: 4. PATIENT IS VENTED ON AC MODE AT A RATE OF 18, TIDAL VOLUME OF 450, FIO2 OF 30% AND PEEP OF 5. PATIENT IS BREATHING ADEQUATELY AND THERE ARE NO SIGNS OF RESPIRATORY DISTRESS. SOFTWARE TEST AUTOMATION ENGINEER IN PLACE, NSR. PATIENT IS ON TUBE FEEDINGS INFUSING AT 30ML/HR WITH 50 FWF Q4. PATIENT HAS RIGHT UPPER STIMULATOR, NOTED FOR PARKINSONS TO RIGHT SIDE ANTERIOR CHEST. PATIENT HAS PEG TUBE NOTED TO LUQ. PATIENT HAS L SUBCLAVIAN NOTED FOR ACCESS. NORMAL SALINE IS INFUSING AT 70 ML/HR. ABD IS ROUND AND FLAT. PATIENT HAS BILATERAL SOFT WRIST RESTRAINTS, CAP REFILL LESS THAN 3 SECONDS AND 2 FINGER SPACE NOTED. PATIENT HAS WHITE DRAINING VIA GRAVITY WITH FAIR AMOUNT OF YELLOW URINE. PATIENT HAS BILATERAL LEG SEQUENTIAL DEVICE, HEELS OFF LOADED WITH PILLOWS. DAUGHTER AT BEDSIDE. PATIENT STABLE, WILL CONTINUE TO MONITOR.
--- NOTE | 2019-03-29 08:25 | NUR ---
SEDATION OFF AT THIS TIME. PATIENT TO START CPAP SOON.
--- NOTE | 2019-03-29 08:49 | NUR ---
PATIENT TO START CPAP AT THIS TIME, PER RT.
--- NOTE | 2019-03-29 08:55 | NUR ---
PER RT, PATIENT IS APNEIC AND WILL TRY CPAP IN ABOUT AN HOUR. WILL KEEP SEDATION OFF AT THIS TIME, AND CONTINUE TO MONITOR.
--- NOTE | 2019-03-29 09:00 | NUR ---
FIRST DOSE OF SINEMET GIVEN, PER DAUGHTER SHARONA, GIVE PATIENT HALF THE TAB BECAUSE PATIENT WILL HAVE TOO MUCH MOVEMENT GOING ON.
--- NOTE | 2019-03-29 10:27 | NUR ---
PER RT, PATIENT ON CPAP AT THIS TIME. PATIENT SUPPORT OF 12, PEEP OF 5. PT STABLE, WILL CONTINUE TO MONITOR.
--- NOTE | 2019-03-29 12:44 | NUR ---
PTS DAUGHTER BEDSIDE, SHE HELPED TRANSLATE FOR PT IN AN ATTEMPT TO OBTAIN WEANING PARAMETERS. MIP -35, UNABLE TO OBTAIN VC, ONLY VT OF APPROX 450. PT DOING WELL ON CPAP. WAS ABLE TO SQUEEZE MY HAND UPON COMMAND BUT WAS VERY SLOW TO RESPOND. PT UNBLE TO OPEN HER EYES UPON REQUEST.
--- NOTE | 2019-03-29 16:17 | NUR ---
FULL BED BATH, LINEN CHANGE AND WHITE CAR PROVIDED TO PATIENT. PATIENT STABLE, WILL CONTINUE TO MONITOR.
--- NOTE | 2019-03-29 16:30 | NUR ---
Follow-up Nutrition Assessment: Elvia Ornelas F/U Rm ICU5 Dx: Sepsis, Altered Mental Status, Parkinsons PMHx: Hypertension, Parkinson's disease, history of stroke Labs: (03/29) Cl 108H, Glucos. 115H, Creat. 0.5L, Ca 8.3L, WBC 3.5L, Hgb. 9.0L, Hct. 27L Meds: Colace, Pepcid, Zofran Diet: (Orogastric tube) Vital AF @10ml/hr with FWF 50cc Q4H (goal 30ml/hr) PO Intake: Tube feeding BMI: 23.4kg/m2 IBW: 110#, 50kg %IBW: 115% Weights: (03/27) 62kg, (03/28) 58.5kg, (03/29) 58kg Bed scale: 64kg, 140# Skin: Slight redness to coccxy area. Rick: 13 I/Os: (03/29) Total intake: 2974, Total output: 2700, Fluid balance: 274 Edema: None noted GI: Last BM: 03/26/19 per daughter Abril Pt Visit: Spoke to pt's daughter Abril regarding her mother's nutrition. Pt stated she tries to eat a lot of vegetables at home and said she sometimes coos for her. Abril said pt has had some constipation, but no N/V/D. Abril said her UBW is 120-125#. RYANNE Kuhn stated pt was tolerating the tube feeding well and residuals were 5ml. Gave NCM Cardiac/TLC diet education to her daughter per request. Current tube feeding provides: 288kcal and 18g of protein. Spoke to RYANNE Kuhn who stated that the doctor was gone for the day, but would read notes in pt's file regarding the tube feeding recommendation. Estimated Nutritional Needs based on actual body weight 58kg Energy Needs: 1740-2030kcal/kg (30-35kcal/kg) (Due to Sepsis) Protein Needs: 87-104g/day (1.5-1.8g/kg) (Due to Sepsis) Fluid Needs: 5366-5199 (1ml/kg) or per doctor Nutrition Diagnosis 1. Increased nutrient needs r/t metabolic demands aeb estimated calories and protein for sepsis. (Ongoing) Intervention 1. Increase Vital AF 1.2 at 60cc/hr x24 hrs. to provide 1728kcal/108g of protein/573cc free water flush. Monitor/Evaluate Goal: Have pt meet at least 75% of estimated needs Monitor: PO intake, Labs, GI function, tolerance of TF HR F/U 03/31-04/02
--- NOTE | 2019-03-29 16:33 | NUR ---
Intervention 1. Increase Vital AF 1.2 at 60cc/hr x24 hrs. to provide 1728kcal/108g of protein/573cc free water flush.
--- NOTE | 2019-03-29 18:13 | NUR ---
PATIENT BACK ON AC MODE AT THIS TIME. RATE OF 18, TIDAL VOLUME OF 450, FIO2 OF 30% AND PEEP OF 5. PT STABLE, WILL CONTINUE TO MONITOR.
--- NOTE | 2019-03-29 18:26 | NUR ---
PATIENT AGITATED, AT THIS TIME. FENTANYL TURNED ON INFUSING AT 1 MCG/KG/HR AND VERSED AT 1 MG/HR. AT BEDSIDE, WILL CONTINUE TO MONITOR.
--- NOTE | 2019-03-29 19:04 | NUR ---
REPORT GIVEN TO RYANNE HOUSTON. ALL QUESTIONS ANSWERED.
--- NOTE | 2019-03-29 19:05 | NUR ---
RECEIVED REPORT FROM JOSELITO PEARL. WILL RESUME CARE.
--- NOTE | 2019-03-29 19:14 | NUR ---
DAUGHTER CALLED VIA PATIENTS CELL PHONE. ALL UPDATES PROVIDED. NO CONCERNS AT THIS TIME.
--- NOTE | 2019-03-29 20:10 | NUR ---
DR. AJ AT BEDSIDE ASSESSING PT. UPDATES PROVIDED.
--- NOTE | 2019-03-29 21:55 | NUR ---
LIBERTY 2 TABS GIVEN INSTEAD OF 3 TABS PER DAUGHTERS REQUEST. DAUGHTER STATES "3 IS TOO STRONG FOR HER".
[2019-03-30] VITALS (20 sets, daily range): BP systolic 88–158; BP diastolic 52–89
--- NOTE | 2019-03-30 00:20 | NUR ---
DR. CARMEN AT BEDSIDE ASSESSING PT. UPDATES ROVIDED.
--- NOTE | 2019-03-30 00:30 | NUR ---
RT DARI AT BEDSIDE ASSESSING PT.
--- NOTE | 2019-03-30 03:26 | NUR ---
PT SLEEPING COMFORTABLY IN BED AT THIS TIME. BREATHING E/U. NO S/SX OF PAIN OR DISCOMFORT NOTED. DAUGHTER AT BEDSIDE. WILL CONTINUE TO MONITOR.
[2019-03-30 05:19] LABS: BASOPHIL % 0.7 % (0-2); PLATELET COUNT 167 x10^3mcL (130-400)
[2019-03-30 05:39] LABS: CHLORIDE SERUM 108 mmol/L (98-107); POTASSIUM SERUM 3.7 mmol/L (3.5-5.1); SODIUM SERUM 141 mmol/L (136-145)
--- NOTE | 2019-03-30 05:40 | NUR ---
PT CLEANED. CHLORHEXIDINE WIPE TO L SUBLAVIAN IV SITE. WHITE CATHETER CARE PROVIDED. URINE OUTPUT 1350ML. NO BM. ALL LINENS AND GOWN CHANGED. PT REPOSITIONED AND FLOATED ON PILLOWS, BONY PROMINNENCES OFFLOADED. BED IN LOW POSITION. CALL LIGHT WITHIN REACH.
--- NOTE | 2019-03-30 06:03 | NUR ---
L SUBCLAVIAN DRESSING CHANGE DONE WITH ASCEPTIC TECHNIQUE. SITE HAS NO SWELLING, REDNESS, OR SIGNS OF INFECTION NOTED. PT TOLERATED WELL. NO COMPLICATIONS.
[2019-03-30 06:24] LABS: CALCIUM 8.5 mg/dL (8.5-10.1); CARBON DIOXIDE 21.9 mmol/L (21-32); CREATININE SERUM 0.6 mg/dL (0.6-1.0); GLUCOSE SERUM 106 mg/dL (74-106)
--- NOTE | 2019-03-30 07:10 | NUR ---
GAVE REPORT TO ARIEL PEARL. ALL QUESTIONS AND CONCERNS ADDRESSED.
--- NOTE | 2019-03-30 08:00 | NUR ---
INITIAL SHIFT ASSESSMENT DONE (SEE ASSESSMENT PART). SEDATED WITH VERSED AND FENTANYL DRIP, TOLERATING WELL. AROUSABLE TO NAME CALLING. NO SIGNS OF PAIN NOTED. ON VENTILATOR, TOLERATING CURRENT SETTINGS WELL. O2 SAT 98-99%. SR ON MONITOR. SBP IN 110'S-120'S. NO ECTOPY NOTED. ON TUBE FEEDING, TOLERATING WELL. NO RESIDUALS NOTED. HOB ELEVATED. DAUGHTER AT BEDSIDE. UPDATED OF STATUS AND PLAN OF CARE. WILL CONTINUE TO MONITOR.
--- NOTE | 2019-03-30 08:25 | NUR ---
VERSED AND FENTANYL DRIP TURN OFF AT THIS TIME IN PREPARATION FOR CPAP TRIAL. RT COTTRELL IS AWARE.
--- NOTE | 2019-03-30 10:00 | NUR ---
RESTING IN BED WITH DAUGHTER AND AT BEDSIDE. NO SIGNS OF PAIN OR AGITATION NOTED. TOLERATING CPAP WELL. O2 SAT 99-100%. SR ON MONITOR. SBP IN 130'S-150'S. NO ECTOPY NOTED. HOB ELEVATED. WILL CONTINUE TO MONITOR.
--- NOTE | 2019-03-30 12:00 | NUR ---
REASSESSMENT DONE. NEURO STATUS UNCHANGED. NO SIGNS OF PAIN. TOLERATING CPAP WELL. O2 SAT 98-99%. SR ON MONITOR. SBP IN 120'S-130'S. NO ECTOPY NOTED. TOLERATING TUBE FEEDING WELL. RESIDUALS OF 20 ML. HOB ELEVATED. STILL AT BEDSIDE. UPDATED OF STATUS AND PLAN OF CARE. WILL CONTINUE TO MONITOR.
--- NOTE | 2019-03-30 14:00 | NUR ---
RESTING IN BED WITH DAUGHTER AT BEDSIDE. NO SIGNS OF PAIN. TOLERATING CPAP WELL. O2 SAT 99-100%. SR ON MONITOR. SBP IN 130-150. NO ECTOPY NOTED. HOB ELEVATED. WILL CONTINUE TO MONITOR.
--- NOTE | 2019-03-30 15:26 | NUR ---
PATIENT RESTLESS AND AGITATED ATTEMPTING TO PULL ON TUBING AND LINES. PATIENT PLACED BACK ON AC MODE AND SEDATION OF FENTANYL AT 1 MCG/KG/HR AND VERSED AT 1 MG/HR INITIATED AT THIS TIME. SIMBA BAIRD MADE AWARE.
--- NOTE | 2019-03-30 16:00 | NUR ---
REASSESSMENT DONE. SEDATED, TOLERATING WELL. NO SIGNS OF PAIN OR AGITATION NOTED. TOLERATING CURRENT VENTILATOR SETTINGS WELL. O2 SAT 99-100%. SR ON MONITOR. SBP IN 100'S-158. NO ECTOPY NOTED. TOLERATING TUBE FEEDING WELL. RESIDUALS OF 20 ML. HOB ELEVATED. DAUGHTER IS STILL AT BEDSIDE. UPDATED OF STATUS AND PLAN OF CARE. WILL CONTINUE TO MONITOR.
--- NOTE | 2019-03-30 18:00 | NUR ---
RESTING IN BED. NO SIGNS OF PAIN. TOLERATING VENTILATOR WELL. O2 SAT 100%. SR ON MONITOR. SBP IN 100'S-110'S. NO ECTOPY NOTED. HOB ELEVATED. WILL CONTINUE TO MONITOR.
--- NOTE | 2019-03-30 19:07 | NUR ---
RECEIVED REPORT FROM VIOLET PEARL. WILL RESUME CARE.
--- NOTE | 2019-03-30 19:08 | NUR ---
REPORT GIVEN TO INCOMING TOPOGRAPHIC COMPUTATOR RN, RYANNE HOUSTON.
--- NOTE | 2019-03-30 20:05 | NUR ---
DR. AJ AT BEDSIDE ASSESSING PT. UPDATES PROVIDED. DR AJ DISCUSSED WITH PT AT BEDSIDE ABOUT TREATMENT PLAN AND OPTIONS FOR PT, NEXT STEP BEING TRACHEOSTOMY IF FAMILY MAKES THAT DECISION. ALSO SPOKE WITH PT'S DAUGHTER ON THE PHONE RELAYING SAME MESSAGE. DAUGHTER STATES SHE WILL DISCUSS OPTIONS WITH FATHER AND SISTER.
[2019-03-31] VITALS (21 sets, daily range): BP systolic 92–153; BP diastolic 38–89
--- NOTE | 2019-03-31 00:05 | NUR ---
RT HURTADO AT BEDSIDE ASSESSING PT.
--- NOTE | 2019-03-31 03:40 | NUR ---
PT HAD LARGE SOFT BM. PT CLEANED AND NEW OPTIFOAM PLACED TO SACRAL AREA. PT TOLERATED WELL.
--- NOTE | 2019-03-31 04:58 | NUR ---
ADMISSIONS RN AT BEDSIDE FOR BLOOD DRAW.
[2019-03-31 05:28] LABS: BASOPHIL % 0.6 % (0-2); PLATELET COUNT 177 x10^3mcL (130-400); RED CELL DISTRIBUTION WIDTH 14.5 % (11.5-14.5)
[2019-03-31 05:32] LABS: CALCIUM 8.7 mg/dL (8.5-10.1); CARBON DIOXIDE 25.2 mmol/L (21-32); CHLORIDE SERUM 105 mmol/L (98-107); CREATININE SERUM 0.6 mg/dL (0.6-1.0); GLUCOSE SERUM 106 mg/dL (74-106); POTASSIUM SERUM 3.7 mmol/L (3.5-5.1); SODIUM SERUM 138 mmol/L (136-145)
--- NOTE | 2019-03-31 05:45 | NUR ---
WHITE CATHETER CARE PROVIDED. URINE OUTPUT 580ML. LINENS AND GOWN CHANGED. CHLORHEXIDINE WIPES TO L SUBCLAVIAN CVC. PT REPOSITIONED TO A SUPINE POSITION, FLOATED ON PILLOWS AND BONY PROMINENCES OFFLOADED. BED IN LOW POSITION. CALL LIGHT WITHIN REACH.
--- NOTE | 2019-03-31 07:05 | NUR ---
GAVE REPORT TO ASHLI PEARL. ALL QUESTIONS AND CONCERNS ADDRESSED.
--- NOTE | 2019-03-31 07:45 | NUR ---
PATIENT REMAINS INTUBATED AND SEDATED WITH FENTANYL AT 1MCG/KG/HR AND VERSED AT 1MG/HR. PATIENT RESPONSIVE TO TACTILE STIMULI BUT UNABLE TO FOLLOW COMMANDS AT THIS TIME. AFTER PATIENT RESPONSIVE TO TACTILE STIMULI. DEYSI PUPILS WITH SLUGGISH REACTIONT TO LIGHT. ETT 7.[address] AND SECURED TO 24CM AT LIPLINE. ETT TO VENT VIA VCV/AC MODE: FIO2 30%, RATE 18, VT 450, AND PEEP 5. CVC TO LEFT UPPER CHEST WITH DRESSING IN PLACE. PEG IN PLACE AND CONNECTED TO TUBE FEEDING WITH VITAL AF AT 30ML/HR. 40ML OF RESIDUAL IS REPLACED. WHITE CATH TO GRAVITY DRAINING YELLOW URINE. SOFT WRIST RESTRAINTS IN PLACE TO PREVENT PATIENT FORM PULLING AT TUBE/LINE. PATIENT IS OFTEN RESTLESS/AGIATED. WILL RELEASE RESTRAINTS FOR ROM Q2HR/PRN. HEEL PROTECTORS TO BOTH HEELS. PATIENT IS ON ISOGEL MATTRESS. BED IS AT LOWEST POSITION. SIDE RAILS UP X3. DAUGHTER SHARONA IS AT BEDSIDE.
--- NOTE | 2019-03-31 07:50 | NUR ---
NOE RENAE IS AT BEDSIDE EXAMING PATIENT.
--- NOTE | 2019-03-31 10:02 | NUR ---
DR. AJ IS AT BEDSIDE AND TALKING TO THE DAUGHTER, SHARONA.
--- NOTE | 2019-03-31 10:15 | NUR ---
SEDATION IS HOLD; DARIRT WILL IMPLEMENT CPAP TRIAL ON PATIENT.
--- NOTE | 2019-03-31 12:35 | NUR ---
PLACED PT ON CPAP 09/26. PT TOLERATING WELL
--- NOTE | 2019-03-31 14:00 | NUR ---
ADAL RN, MYSELF, PT'S , JEREMIAH TABOR IN QUIET ROOM. DISCUSSED WITH FAMILY DIFFERENT PLAN OF CARE OF TRACH AND PALLATIVE CARE. ENSURE PT'S FAMILY WE ARE HERE TO PROVIDE EDUCATION AND WANTING TO RESPECT THEIR WISHES TO PLAN OF CARE. WHILE PROVIDING EDUCATION OF PALLATIVE CARE, JEREMIAH TABOR STORMED OUT OF ROOM ABRUPTLY. I DISCUSSED WITH T'S (IN [place]) QUALITY VS QUANTITY OF LIFE. IS RESISTANT TO THE EDUCATION OF QUALITY VS QUANTITY DISCUSSION. FAMILY TO DISCUSS AMONGST THEMSELVES THEIR DECISION OF MOVING FORWARD.
--- NOTE | 2019-03-31 14:52 | NUR ---
SPOKE WITH PATIENT'S DAUGHTER TIARA VIA TELEPHONE WHO WAS NOT PRESENT DURING THE CONVERSATION WITH PATIENT'S , SISTER, RN MIN AND MYSELF. TIARA STATED THAT THE FAMILY HAS OPTED FOR TRACHEOSTOMY PLACEMENT. [facility]U MADE AWARE AND WILL CONTACT DR LE TOMORROW 04/01/19.
--- NOTE | 2019-03-31 15:30 | NUR ---
PATIENT REMAINS ON CPAP MODE: PEEP 5, PSV 12, AND FIO2 30%, THE FAMILY INSTRUCTED TO ENCOURAGE THE PATIENT TO BREATHE BECAUSE THE PATIENT HAS EPISODES OF SLOW BREATHING WITH RR<12.
--- NOTE | 2019-03-31 18:15 | NUR ---
DARI RT SWITCHED THE VENT SETTING FROM CPAP MODE BACK TO VCV/AC MODE WITH THE SAME PREVIOUS SETTING: FIO2 30%, RATE 18, VT 450, AND PEEP 5. SEDATION RESUMED WITH FENTANYL AT 0.5MCG/KG/HR AND VERSED AT 0.5 MG/HR.
--- NOTE | 2019-03-31 18:30 | NUR ---
PATIENT WAS GIVEN A BEDBATH; LINEN AND GOWN CHANGED. TOTAL CARE INCLUDING CENTRAL LINE SITE AND F/C HAS BEEN PROVIDED TO THE PATIENT.
--- NOTE | 2019-03-31 19:12 | NUR ---
REPORT RECIEVED FROM ASHLI PEARL. ALL CONCERNS ADDRESSED. NURSING UPDATES. POC DISCUSSED. SEE SHIFT ASSESSMENT FOR ASSESSMENT.
--- NOTE | 2019-03-31 23:30 | NUR ---
PT NOTED W/ ATTEMPTS TO PULL OUT ETT AND PT AGITATED. VERSED TITRATED FROM 0.5MG/HR TO 2MG/HR PER FAMILY AND PT AGITATION. PT NO LONGER ATTEMPTING TO PULL OUT LINES OR ETT TUBE. WILL CONT TO MONITOR.
[2019-04-01] VITALS (18 sets, daily range): BP systolic 93–135; BP diastolic 54–84
--- NOTE | 2019-04-01 01:00 | NUR ---
VERSED TITRATED FROM 2MG/HR TO 0.5MG/HR PER PT TOLERATING AND NO S/S OF AGITATION.
--- NOTE | 2019-04-01 02:00 | NUR ---
PT RESTING CALMLY IN BED. NO ACUTE CHANGES.
--- NOTE | 2019-04-01 05:00 | NUR ---
CHANGED LINENS, GOWN, PT TOLERATED WELL. WILL CONT TO MONITOR. NO ACUTE CHANGES. FAMILY @ BEDSIDE.
[2019-04-01 05:34] LABS: BASOPHIL % 0.4 % (0-2); PLATELET COUNT 200 x10^3mcL (130-400); RED CELL DISTRIBUTION WIDTH 14.4 % (11.5-14.5)
[2019-04-01 05:45] LABS: CALCIUM 8.9 mg/dL (8.5-10.1); CARBON DIOXIDE 23.2 mmol/L (21-32); CHLORIDE SERUM 106 mmol/L (98-107); CREATININE SERUM 0.7 mg/dL (0.6-1.0); GLUCOSE SERUM 105 mg/dL (74-106); POTASSIUM SERUM 3.7 mmol/L (3.5-5.1); SODIUM SERUM 140 mmol/L (136-145)
--- NOTE | 2019-04-01 08:00 | NUR ---
INITIAL SHIFT ASSESSMENT DONE (SEE ASSESSMENT PART). SEDATED WITH VERSED AND FENTANYL DRIP, TOLERATING WELL. EASILY AROUSABLE TO NAME CALLING. NO SIGNS OF PAIN. OCCASIONAL AGITATION NOTED. SPEAKS [place] ONLY. DAUGHTER AT BEDSIDE HELPING TRANSLATE TO [place]. ON VENTILATOR, TOLERATING CURRENT SETTINGS WELL. O2 SAT 99-100%. SR ON MONITOR. SBP IN 100'S-110'S. NO ECTOPY NOTED. ON TUBE FEEDING VIA PEG TUBE, TOLERATING WELL. RESIDUALS OF 20 ML. HOB ELEVATED. ON BILATERAL SOFT WRIST RESTRAINTS. DAUGHTER UPDATED OF PLAN OF CARE. WILL CONTINUE TO MONITOR.
--- NOTE | 2019-04-01 10:00 | NUR ---
SLEEPING BUT EASILY AROUSABLE. NO SIGNS OF PAIN OR AGITATION NOTED. TOLERATING VENTILATOR WELL. O2 SAT 99-100%. SR ON MONITOR. SBP IN 110-130'S. NO ECTOPY NOTED. HOB ELEVATED. WILL CONTINUE TO MONITOR.
--- NOTE | 2019-04-01 10:20 | NUR ---
VERSED AND FENTANYL DRIP TURN OFF IN PREPARATION FOR CPAP TRIAL. RT BAILEY UPDATED.
--- NOTE | 2019-04-01 10:21 | NUR ---
PLACED PT ON CPAP 5 WITH PSV 12 AND FIO2 30%, RN VIOLET AWARE.
--- NOTE | 2019-04-01 12:00 | NUR ---
REASSESSMENT DONE. DROWSY BUT EASILY AROUSABLE. NO SIGNS OF PAIN. OCCASIONAL AGITATION NOTED. TOLERATING CPAP WELL. O2 SAT 99-100%. SR ON MONITOR. SBP IN 120'S. NO ECTOPY NOTED. HOB ELEVATED. TOLERATING TUBE FEEDING WELL. RESIDUALS OF 15 ML. HOB ELEVATED. TWO DAUGHTERS AT BEDSIDE. UPDATED OF STATUS AND PLAN OF CARE. WILL CONTINUE TO MONITOR.
--- NOTE | 2019-04-01 14:00 | NUR ---
RESTING IN BED WITH FAMILY MEMBERS IN THE ROOM. NO SIGNS OF PAIN. OCCASIONAL AGITATION NOTED. TOLERATING CPAP WELL. O2 SAT 99-100%. SR ON MONITOR. SBP IN 130'S. NO ECTOPY NOTED. HOB ELEVATED. WILL CONTINUE TO MONITOR.
--- NOTE | 2019-04-01 14:05 | NUR ---
NOE RENAE IS IN THE ROOM TALKING TO THE TWO DAUGHTERS REGARDING TRACHEOSTOMY TUBE PLACEMENT. THE TWO DAUGHTERS AGREED WITH NOE RENAE ABOUT TRACHEOSTOMY TUBE PLACEMENT. THEY TOLD NOE RENAE THAT THEY WILL TELL THEIR DAD AND LET HIM SIGN THE CONSENT FOR TRACHEOSTOMY TUBE PLACEMENT.
--- NOTE | 2019-04-01 16:00 | NUR ---
REASSESSMENT DONE. NEURO STATUS STILL THE SAME. NO SIGNS OF PAIN. OCCASIONAL AGITATION NOTED. TOLERATING CPAP WELL. O2 SAT 99-100%. SR ON MONITOR. SBP IN 130'S-150. NO ECTOPY NOTED. TOLERATING TUBE FEEDING WELL. RESIDUALS OF 20 ML. HOB ELEVATED. FAMILY MEMBERS ARE STILL IN THE ROOM. UPDATED OF STATUS AND PLAN OF CARE. WILL CONTINUE TO MONITOR.
--- NOTE | 2019-04-01 16:16 | NUR ---
PLACED PT BACK ON A/C VC WITH PREVIOUSLY ORDERED AND CHARTED VENT SETTINGS. VENT SETTINGS FOLLOWS: A/C VC 18, VT 450, PEEP +5, AND FIO2 30%.
--- NOTE | 2019-04-01 16:21 | NUR ---
RT AVALOS PUT PATIENT BACK ON AC MODE. VERSED AND FENTANYL DRIP RESTARTED. FAMILY UPDATED OF STATUS AND PLAN OF CARE. WILL CONTINUE TO MONITOR.
--- NOTE | 2019-04-01 17:00 | NUR ---
GIVEN PARTIAL BATH AND LINENS ARE CHANGE. TOLERATED THE PROCEDURE WELL.
--- NOTE | 2019-04-01 17:43 | NUR ---
DR AJ IS IN THE ROOM. UPDATED OF STATUS. MD TALK TO RT BAILEY. MD ALSO TALK TO THE DAUGHTER (TIARA). NO NEW ORDERS RECEIVE.
--- NOTE | 2019-04-01 18:00 | NUR ---
SLEEPING BUT EASILY AROUSABLE. NO SIGNS OF PAIN. OCCASIONAL AGITATION NOTED. TOLERATING CURRENT VENTILATOR SETTINGS WELL. O2 SAT 100%. SR ON MONITOR. SBP IN 120'S-130'S. NO ECTOPY NOTED. HOB ELEVATED. DAUGHTER IS STILL AT BEDSIDE. UPDATED OF PLAN OF CARE. WILL CONTINUE TO MONITOR.
--- NOTE | 2019-04-01 19:00 | NUR ---
RECIEVED REPORT FROM REGSITRY RN. ALL QUESTIONS ANSWERED AND ADDRESSED. WILL RESUME CARE.
--- NOTE | 2019-04-01 19:00 | NUR ---
RECIEVED PT INTUBATED AND SEDATED ON VERSED @ 0.5 MG/HR AND FENTANYL @ 0.5 MCG/KG/HR. ABLE TO FOLLOW COMMANDS. RESPONDS TO VERBAL, TACTILE, AND PAINFUL STIMULUS. RSS = 4. 7.5 ETT @ 24 LL. ETT TO VENT: VCV/AC MODE = 5 PEEP, 450 VT, 30% FIO2, 18 RATE. BREATHING EVEN AND UNLABORED. SYMMETRICAL CHEST WALL EXPANSION NOTED. NO SIGNS OF RESPIRATORY DISTRESS NOTED. TRACHEA MIDLINE. NO JVD PRESENT. LIJ CVC INTACT, X3 PORTS PATENT, DRESSING CDI. NSR ON MD PEDIATRIC ALLERGIST NOTED. S1/S2 HEART SOUNDS AUDIBLE. SKIN IS WARM/DRY TO TOUCH, PALE IN COLOR AND CONSISTENT WITH ETHNICITY. NO CYANOSIS PRESENT. NO EDEMA PRESENT. ABD IS SOFT AND ROUNDED. PEG TUBE TO L QUAD INTACT AND SECURED WITH NO DRAINAGE OR LEAKING NOTED, DRESSING CDI. PEG TUBE TO VITAL AF TUBE FEEDING INFUSING @ 30 ML/HR WITH 50CC FWF Q4H. NO RESIDUALS NOTED. F/C INTACT AND DRAINING VIA GRAVITY. URINE IS YELLOW IN COLOR WITH GOOD OUTPUT. NO VAGINAL BLEEDING OR DISCHARGE NOTED. BILATERAL SOFT WRIST RESTRAINTS APPLIED. JOINTS INTACT, NO JOINT SWELLING NOTED. NO CONTRACTURES NOTED. HOB 30 DEGREES, X3 SIDE RAILS UP, BED IN LOWEST POSITION. DAUGHTER AT BEDSIDE AND UPDATED WITH POC OF PATIENT. WILL CONT CARE.
--- NOTE | 2019-04-01 19:02 | NUR ---
REPORT GIVEN TO INCOMING TRAIN CONTROLLER RN, RYANNE DA SILVA.
--- NOTE | 2019-04-01 23:55 | NUR ---
PT RESTING AND COMFORTABLE. REMAINS INTUBATED AND SEDATED. NO ACUTE DISTRESS NOTED. DAUGHTER REMAINS AT BEDSIDE. WILL CONT TO MONITOR.
[2019-04-02] VITALS (19 sets, daily range): BP systolic 99–139; BP diastolic 61–96
--- NOTE | 2019-04-02 | NUR ---
DR. CARMEN AT BEDSIDE. UPDATES PROVIDED. NO NEW ORDERS AT THIS TIME.
--- NOTE | 2019-04-02 04:20 | NUR ---
COMPLETE BED BATH GIVEN, CHG WIPES APPLIED, WHITE CARE COMPLETED, AND LINENS CHANGED. PT TOLERATED WELL. NO ACUTE SIGNS OF DISTRESS.
[2019-04-02 05:39] LABS: BASOPHIL % 0.4 % (0-2); PLATELET COUNT 213 x10^3mcL (130-400); RED CELL DISTRIBUTION WIDTH 14.8 % (11.5-14.5)
[2019-04-02 05:47] LABS: CALCIUM 8.6 mg/dL (8.5-10.1); CARBON DIOXIDE 23.9 mmol/L (21-32); CHLORIDE SERUM 105 mmol/L (98-107); CREATININE SERUM 0.7 mg/dL (0.6-1.0); GLUCOSE SERUM 118 mg/dL (74-106); SODIUM SERUM 139 mmol/L (136-145)
--- NOTE | 2019-04-02 07:29 | NUR ---
PT AGITATED. BITING DOWN ON ETT. THRASHING HEAD FROM SIDE TO SIDE AND RR 39 ON VENTILATOR. VERSED INCREASED FROM 0.5 MG/HR TO 1 MG/HR. RSS 3
--- NOTE | 2019-04-02 08:20 | NUR ---
Dmitriy LANE MANAGER FLEET AT BEDSIDE SPEAKING WITH PT'S DAUGHTER, UPDATES PROVIDED AND ALL QUESTIONS ADDRESSED.
--- NOTE | 2019-04-02 08:26 | NUR ---
PT RESTLESS, BITING ON ETT, RR 39 ON VENTILATOR. FENTANYL TITRATED FROM 0.5 MCG/KG/HR TO 1 MCG/KG/HR. RSS 3
--- NOTE | 2019-04-02 10:15 | NUR ---
SEDATION TURNED OFF AT THIS TIME PENDING CPAP TRIAL
--- NOTE | 2019-04-02 12:47 | NUR ---
PLACED PT ON CPAP 5 WITH PSV 12 AND FIO2 30%, RN JUAN UGARTE.
--- NOTE | 2019-04-02 13:33 | NUR ---
Follow-up Nutrition Assessment: IC05/ RHEA GUNN Dx: Sepsis, altered mental status PMHx: HTN, Parkinson's disease, Hx of stroke Labs: (04/02) BG 118H, BUN 22H Meds: Colace, diflucan, Pepcid, Sinemet, Zofran, heparin Diet: TF Vital AF 1.2 @ 10ml/hr, goal 30 ml/hr. FWF 50 ml Q4H TF Intake: 692 ml Weights: (04/02) 53.4 kg, (04/01) 61 kg, (03/31) 58 kg Skin: intact Rick: 17 I/Os: 1355/935 Edema: none GI: Last BM RDN Visit (04/02): RN was at beside. Pt was responding to verbal commands. Per RN pt is tolerating Vital AF 1.2 @ 30 ml/hr without any residuals. Spoke with PRINCIPAL STATISTICAL SCIENTIST Desorie to increase Vital AF 1.2 to 60 ml/hr. PRINCIPAL STATISTICAL SCIENTIST agreed to the recommendation and would put in the order. Estimated Nutritional Needs based on actual body weight 58 kg Energy: 7736-1794 vs 1078 kcal/d (30-35 kcal/kg vs The [place] State Equation (PSU) 2003b)- sepsis Protein: 87-104 g/d (1.5-1.8 g/kg)- sepsis Fluid: 8388-0536 (1ml/kcal) or per MD Nutrition Diagnosis 1. Increased nutrient needs related to metabolic demands as evidenced by estimated calories and protein needs. (ongoing) 2. Inadequate enteral nutrition infusion related to current TF rate of 30ml/hr as evidenced by pt not meeting estimated calorie and protein needs. Intervention 1. Increase Vital AF 1.2 @ 60ml/hr to provide 1728 kcal and 108g protein. FWF 50ml Q4H. This will provide 1728 kcal and 86g protein. This meets >90% of estimated calorie and protein needs of the patient. Monitor/Evaluate Goal: Have pt meet at least 75% of estimated needs Monitor: PO intake, Labs, GI function F/U in 2-3 days as high risk 04/04-
--- NOTE | 2019-04-02 14:20 | NUR ---
PT'S AT BEDSIDE. CALM AND COOPERATIVE.
--- NOTE | 2019-04-02 18:01 | NUR ---
TF REACHED 24 HOUR USE. CHANGED AT THIS TIME
--- NOTE | 2019-04-02 19:30 | NUR ---
REC'D REPORT FROM JUAN PEARL TO ASSUME CARE. PT INTUBATED AND SEDATED ON FENTANYL 0.5 MCG/KG/HR, VERSED 1 MG/HR WITH RSS 3. PERRLA NOTED. UNABLE TO FOLLOW COMMANDS. 7.5 ETT SECURED, 24 CM @ LL. NO JVD NOTED. TRACHEA MIDLINE. EENT FREE OF DISCHARGE. ETT TO VENT: AC MODE RATE 18, TV 450, PEEP 5, FIO2 30%. CHEST RISE EQUAL AND SYMMETRICAL. LUNG SOUNDS CLEAR BUL, DIM BASES. SHREDDED FILLER CUTTER OPERATOR IN PLACE SHOWING NSR. BP 112/76 MAP 89, HR 79. CHEST WALL STABLE. LEFT SUBCLAVIAN CVC, INTACT, PORTS PATENT. PULSES PALPABLE X4. CAP REFILL < 3 SECS. NO EDEMA NOTED. REQUIRES TOTAL CARE ASSISTANCE. TURNED AND REPOSITIONED Q2H FOR PRESSURE RELIEF. BUE SOFT WRIST RESTRAINTS FOR PT SAFETY. LUQ PEG TUBE INTACT AND PATENT. VITAL AF INFUSING @30 ML/HR, FWF 50ML Q4H. ABD ROUND, SOFT, NONTENDER TO TOUCH. BOWEL SOUNDS ACTIVE. NO EPISODES OF N/V NOTED. F/C INTACT AND DRAINING VIA GRAVITY YELLOW COLORED URINE. NO VAGINAL BLEEDING OR DISCHARGE NOTED. ERYTHEMA TO SACRAL AREA, OPTIFOAM IN PLACE, CDI. SKIN WARM DRY TO TOUCH. RIGHT UPPER CHEST DEEP BRAIN STIMULATION FOR PARKINSONS NOTED. SUPPORT AT BEDSIDE. ALL NEEDS MET AT THIS TIME. WILL CONTINUE TO MONITOR.
--- NOTE | 2019-04-02 19:45 | NUR ---
DR AJ AT BEDSIDE, UPDATED ON STATUS, PTS DAUGHTER CALLED ON PHONE TO SPEAK TO DR AJ, ALL QUESTIONS AND CONCERNS ADDRESSED. NO NEW ORDERS GIVEN.
--- NOTE | 2019-04-02 23:23 | NUR ---
PT HAD SOFT MODERATE AMT BM. PT CLEANED AND LINENS CHANGED. F/C CARE PROVIDED. REPOSITIONED AT THIS TIME.
[2019-04-03] VITALS (18 sets, daily range): BP systolic 98–1124; BP diastolic 46–88
--- NOTE | 2019-04-03 | NUR ---
TF TURNED OFF AT THIS TIME. PT KEPT NPO FOR SURGERY IN AM.
[2019-04-03 05:29] LABS: BASOPHIL % 0.3 % (0-2); PLATELET COUNT 203 x10^3mcL (130-400)
[2019-04-03 05:30] LABS: RED CELL DISTRIBUTION WIDTH 14.6 % (11.5-14.5)
[2019-04-03 05:40] LABS: CALCIUM 8.3 mg/dL (8.5-10.1); CARBON DIOXIDE 23.2 mmol/L (21-32); CHLORIDE SERUM 106 mmol/L (98-107); CREATININE SERUM 0.7 mg/dL (0.6-1.0); GLUCOSE SERUM 100 mg/dL (74-106); POTASSIUM SERUM 3.7 mmol/L (3.5-5.1); SODIUM SERUM 141 mmol/L (136-145)
--- NOTE | 2019-04-03 06:30 | NUR ---
TOTAL BED BATH PROVIDED WITH CHG WIPES.
--- NOTE | 2019-04-03 06:55 | NUR ---
REPORT GIVEN TO OR NURSE, VALARIE PEARL.
--- NOTE | 2019-04-03 07:31 | NUR ---
PATIENT REMAINS INTUBATED AND SEDATED WITH FENTANYL AT 0.5MCG/KG/HR AND VERSED AT 1MG/HR. PATIENT RESPONSIVE TO VERBAL STIMULI AND FOLLOWS COUPLE OF VERY SIMPLE COMMANDS. ETT SECURED AT 23CM AT LIPLINE. ETT TO VENT VENT VIA VCV/AC MODE: FIO2 30%, RATE 18, VT 450, AND PEEP 5. CVC TO LEFT UPPER CHEST WITH DRESSING INTACT. DEEP BRAIN STIMULATOR TO RIGHT UPPER CHEST. PEG TUBE IN PLACE TO LEFT UPPER ABDOMEN AND CLAMPED AT THIS TIME. WHITE CATH TO GRAVITY DRAINING YELLOW COLORED URINE. PATIENT IS ON SOFT WRIST RESTRAINTS BECAUSE THE PATIENT ATTEMPTING TO PULL AT TUBE/LINE. WILL RELEASE THE RESTRAINTS FOR ROM Q2HR/PRN. PATIENT IS ON AIR MATTRESS. BED IS AT LOWEST POSITION. SIDE RAILS UP X3. THE DAUGHTERS ARE AT BEDSIDE.
--- NOTE | 2019-04-03 08:47 | NUR ---
THE PATIENT IS TAKEN TO OR VIA BED; ACCOMPANIED BY 2 DAUGHTER, OR NURSES, AND RT CHARLENE.
--- NOTE | 2019-04-03 09:55 | NUR ---
THE PATIENT CAME BACK TO THE ROOM S/P TRACHEOSTOMY; TRACH PORTEX 8.[address] AND SECURED. THE PATIENT RESPONSIVE TO TACTILE STIMULI BUT UNABLE TO FOLLOW COMMANDS. PATIENT REPOSITIONED COMFORTABLY IN BED. VS CHECKED. CALL LIGHT WITHIN REACH. SIDE RAILS UP X3. BED IS AT LOWEST POSITION. AIR MATTRESS IN USE. THE FAMILY IS COMING TO BEDSIDE.
--- NOTE | 2019-04-03 10:05 | NUR ---
PATIENT STARTED TO WAKE UP AND MOVES HANDS TOWARD TUBE/LINE. SEDATION RESUMED WITH FENTANYL AT 1MCG/KG/HR AND VERSED AT 1MG/HR.
--- NOTE | 2019-04-03 10:58 | NUR ---
PEG TUBE FEEDING RESUMED AT 30ML/HR AND FREE WATER FLUSH 50ML EVERY 4HR PER CHEST PAIN COORDINATOR ABDIEL.
--- NOTE | 2019-04-03 12:42 | NUR ---
DR. ASHLEY IS AT BEDSIDE SEEING THE PATIENT AND TALKING TO SHARONA AND TIARA, PATIENT'S DAUGHTERS.
--- NOTE | 2019-04-03 18:35 | NUR ---
THE PATIENT WAS GIVEN A BEDBATH. LINEN AND GOWN WERE CHANGED FOR THE PATIENT. THE TRACH SITE WAS APPLIED REINFORCED DRESSING BY JOSE BAIRD DUE TO OOZING OF SOME SEROSANGUENOUS DRAINAGE. NEW TUBE AND BAG OF FENTANYL WERE CHANGED FOR THE PATIENT DUE TO EXPIRATION OF THE MED. TIARA, DAUGHTER IS AT BEDSIDE WITH THE PATIENT.
--- NOTE | 2019-04-03 19:08 | NUR ---
RECEIVED REPORT FROM ASHLI PEARL. WILL RESUME CARE.
--- NOTE | 2019-04-03 20:15 | NUR ---
RT AT BEDSIDE ASSESSING PT AND GIVING BREATHING TREATMENT. PT TOLERATING WELL.
--- NOTE | 2019-04-03 20:45 | NUR ---
DR. AJ AT BEDSIDE ASSESSING PT. UPDATES PROVIDED.
[2019-04-04] VITALS (19 sets, daily range): BP systolic 100–129; BP diastolic 53–77
--- NOTE | 2019-04-04 03:31 | NUR ---
ASSESSED PT WHO IS CALM, RESTING IN BED AT THIS TIME. NO S/SX OF PAIN OR DISCOMFORT NOTED. NO SOB OR RESPIRATORY DISTRESS. DAUGTHER AT BEDSIDE. WILL CONTINUE TO MONITOR.
--- NOTE | 2019-04-04 04:58 | NUR ---
SUPERINTENDENT INSTITUTION AT BEDSIDE FOR BLOOD DRAW.
--- NOTE | 2019-04-04 05:05 | NUR ---
PT CLEANED. CHLORHEXIDINE WIPES TO L SUBCLAVIAN CVC. ALL LINENS AND GOWN CHANGED. WHITE CATHETER CARE PROVIDED. 480CC OF URINE OUTPUT THROUGHOUT SHIFT. BED IN LOW POSITION. CALL LIGHT WITHIN REACH.
[2019-04-04 05:36] LABS: BASOPHIL % 0.2 % (0-2); PLATELET COUNT 167 x10^3mcL (130-400)
[2019-04-04 05:42] LABS: CALCIUM 8.3 mg/dL (8.5-10.1); CARBON DIOXIDE 20.2 mmol/L (21-32); CHLORIDE SERUM 104 mmol/L (98-107); CREATININE SERUM 0.6 mg/dL (0.6-1.0); GLUCOSE SERUM 111 mg/dL (74-106); POTASSIUM SERUM 3.8 mmol/L (3.5-5.1); SODIUM SERUM 137 mmol/L (136-145)
[2019-04-04 05:50] LABS: RED CELL DISTRIBUTION WIDTH 15.1 % (11.5-14.5)
--- NOTE | 2019-04-04 07:06 | NUR ---
GAVE REPORT TO ASHLI PEARL. ALL QUESTIONS AND CONCERNS ADDRESSED.
--- NOTE | 2019-04-04 07:30 | NUR ---
PATIENT IS RESTING IN BED ON AIR MATTRESS WITH FAMILY AT BEDSIDE. TRACHEOSTOMY IN PLACE TO VENT SETTINGS: VOLUME 450, FIO2 30, RATE 18, PEEP 5. BREATHING IS EVEN AND UNLABORED. CVC TO LT SUBCLAVIAN INFUSING VERSED @ 1MG/HR AND FENTANYL @ 1MCG/KG/HR. PATIENT IS RESTLESS OFTEN AND RESISTIVE TO CARE. SCDS IN PLACE. OPTIFOAM NOTED TO SACRAL AREA IS CDI. ORAL CARE PROVIDED TO PATIENT. WHITE IN PLACE DRAINING YELLOW URINE. SIDERAILS UP WITH BED IN LOW POSITION AND FAMILY AT BEDSIDE.
--- NOTE | 2019-04-04 11:10 | NUR ---
GASTRIC RESIDUAL 30ML. TUBE FEEDING RATE IS INCREASED FROM 30ML/HR TO 40ML/HR. TO REACH THE GOAL ORDERED.
--- NOTE | 2019-04-04 11:57 | NUR ---
Follow-up Nutrition Assessment: IC05/ RHEA GUNN Dx: Sepsis, altered mental status PMHx: HTN, Parkinson's disease, Hx of stroke Labs: (04/04) BG 111H, BUN 19H, HGB 9.5L, Meds: Colace, Levaquin diflucan, Pepcid, Sinemet, Zofran, heparin Diet: TF Vital AF 1.2 @ 10ml/hr, goal 30 ml/hr. FWF 50 ml Q4H TF Intake: 574 ml Weights: (04/04) 58 kg (04/02) 53.4 kg, (04/01) 61 kg, (03/31) 58 kg Skin: optifoam to sacral Rick: 13 I/Os: 1355/935 Edema: none GI: PEG tube Last BM: 04/03 RDN Visit (04/04): Patient's daughter was at bedside and she said that pt has PEG/G-tube. She said that when patient was in SNF, they increased the tube feeding to 65 ml/hr and pt ended up in pneumonia. Vital AF is running @ 30 ml/hr however it does not meet patients estimated energy and protein needs. Discussed recommendations with TRANSPLANT IMMUNOLOGIST Milena and she increased the rate to 45ml/hr. Pt has tracheostomy and is sedated on versed and fentanyl. Estimated Nutritional Needs based on actual body weight 58 kg Energy: 0494-7776 vs 1078 kcal/d (30-35 kcal/kg vs The [place] State Equation (PSU) 2003b)- sepsis Protein: 87-104 g/d (1.5-1.8 g/kg)- sepsis Fluid: 6813-8040 (1ml/kcal) or per MD Nutrition Diagnosis 1. Increased nutrient needs related to metabolic demands as evidenced by estimated calories and protein needs. (ongoing) 2. Inadequate enteral nutrition infusion related to current TF rate of 30ml/hr as evidenced by pt not meeting estimated calorie and protein needs.(improving) Intervention 1. Increase Vital AF 1.2 @ 60ml/hr to provide 1728 kcal and 108g protein. FWF 50ml Q4H. This will provide 1728 kcal and 86g protein. This meets >90% of estimated calorie and protein needs of the patient. Monitor/Evaluate Goal: Have pt meet at least 75% of estimated needs Monitor: PO intake, Labs, GI function F/U in 2-3 days as high risk 04/06-
--- NOTE | 2019-04-04 13:02 | NUR ---
RT COTTRELL IS AT BEDSIDE AND CHANGING DRESSING AT TRACH SITE.
--- NOTE | 2019-04-04 18:35 | NUR ---
THE PATIENT WAS GIVEN A BED BATH; GOWN WAS CHANGED. CENTRAL LINE AND WHITE CATH CARE PROVIDED TO THE PATIENT. THE PATIENT REMAINS ON TUBE FEEDING WITH VITAL AF AT 40ML/HR. FENTANYL AT 1MCG/KG/HR AND VERSED AT 1MG/HR. TRACH TO VENT VIA VCV/AC MODE: FIO2 30%, RATE 18, VT 450, PEEP 5. THE FAMILY IS AT BEDSIDE.
--- NOTE | 2019-04-04 18:56 | NUR ---
REPORT GIVEN TO ROSEMARIE. CONCERNS WAS ADDRESSED.
--- NOTE | 2019-04-04 19:10 | NUR ---
RECEIVED REPORT FROM ASHLI PEARL. WILL RESUME CARE.
--- NOTE | 2019-04-04 19:20 | NUR ---
TF OF VITAL AF INCREASED FROM 40CC/HR TO 45CC/HR TO REACH GOAL FEED. RESIDUAL 30CC. NO N/V. PT TOLERATING WELL.
--- NOTE | 2019-04-04 21:25 | NUR ---
PATIENT PLACED ON PSV 10, CPAP [address]. Pt IS TOLERATING WELL SO FAR. FAMILY IS AT BEDSIDE. ORDER IS TO PLACE Pt ON CPAP DAILY TOLERATED. WILL CONTINUE TO MONITOR.
--- NOTE | 2019-04-04 21:30 | NUR ---
DR. AJ AT BEDSIDE ASSESSING PT. UPDATES PROVIDED. DR. AJ PUT PT ON CPAP. SEDATION TURNED OFF PER MD ORDER.
[2019-04-05] VITALS (19 sets, daily range): BP systolic 112–162; BP diastolic 57–88
--- NOTE | 2019-04-05 01:02 | NUR ---
DR. CARMEN AT BEDSIDE ASSESSING PT. UPDATES PROVIDED.
--- NOTE | 2019-04-05 05:35 | NUR ---
PT HAD LARGE SOFT BM. PT CLEANED. ALL LINENS AND GOWN CHANGED. WHITE CATHETER CARE PROVIDED. URINE OUTPUT 380. ALL NEEDS MET AND ANTICIPATED. BED IN LOW POSITION. CALL LIGHT WITHIN REACH.
[2019-04-05 05:50] LABS: BASOPHIL % 0.3 % (0-2); PLATELET COUNT 169 x10^3mcL (130-400)
[2019-04-05 05:51] LABS: RED CELL DISTRIBUTION WIDTH 15.2 % (11.5-14.5)
[2019-04-05 06:00] LABS: CALCIUM 8.3 mg/dL (8.5-10.1); CARBON DIOXIDE 22.6 mmol/L (21-32); CHLORIDE SERUM 107 mmol/L (98-107); CREATININE SERUM 0.5 mg/dL (0.6-1.0); GLUCOSE SERUM 123 mg/dL (74-106); POTASSIUM SERUM 4.2 mmol/L (3.5-5.1); SODIUM SERUM 141 mmol/L (136-145)
--- NOTE | 2019-04-05 06:27 | NUR ---
RT ARIANA AT BEDSIDE. PT NOT TOLERATING CPAP, TACYPNEIC. PT PUT BACK ON VCV-AC MODE WITH PREVIOUS SETTINGS OF FIO2 30%, VT 450, R 18, PEEP 5.
--- NOTE | 2019-04-05 07:07 | NUR ---
GAVE REPORT TO JERMAINE PEARL. ALL QUESTIONS AND CONCERNS ADDRESSED.
--- NOTE | 2019-04-05 07:15 | NUR ---
RECEIVED PT FROM SERAFIN RN. PT FOUND RESTING IN BED WITH BOTH EYES CLOSED. NO S/S OF ACUTE DISTRESS. NO S/S OF ACUTE RESPIRATORY DISTRESS. TRACH MIDLINE IN TACT, VT 450, FIO2 30%, PEEP 5, RATE18. VS STABLE. WHITE IN TACT. CENTRAL LINE IN TACT TO LEFT SUBCLAVIAN. SITE WNL, NO REDNESS, NO INFILTRATION NOTED. BUE RESTRAINTS IN PLACE, PULSES +2 BUE/BLE. CAP REFILLS <3 SEC BUE/BLE. SKIN SURROUNDING RESTRAINTS DRY/INTACT, COLOR NORMAL FOR ETHNICITY. BED IN LOW POSITION. HOB ELEVATED. CALL LIGHT WITHIN REACH. WILL CONTINUE TO MONITOR.
--- NOTE | 2019-04-05 09:00 | NUR ---
PT HAD BROWN BM, SOFT/BROWN, PERICARE PROVIDED, LINEN CHANGED, 3 PERSON ASSIST TO TURN TO RIGHT SIDE. MILD BLANCHABLE ERYTHEMA NOTED TO SACRUM. PT TRYING TO PULL ON LINES, RESTRAINTS IN PLACE. NO S/S OF ACUTE DISTRESS. TRACH MIDLINE. CENTRAL LINE WNL, SALINE LOCKED. SITE WNL. TUBE FEEDING RUNNING AT 45CC. BED IN LOW POSITION. CALL LIGHT WITHIN REACH. WILL CONTINUE TO MONITOR.
--- NOTE | 2019-04-05 09:34 | NUR ---
TUBE FEEDING AND TUBING CHANGED. RESIDUAL OUTPUT <10CC. TOLERATING FEEDING WELL. NO N/V. NO S/S OF ACUTE DISTRESS. WILL CONTINUE TO MONITOR.
--- NOTE | 2019-04-05 12:00 | NUR ---
PT LAYING IN BED. EASILY AROUSABLE TO VERBAL STIMULI, NO S/S OF ACUTE DISTRESS. NO SOB ON TRACH, O2 SAT 100%, RR EVEN/UNLABORED. CHEST EXPANSION SYMMETRICAL. TRACH MIDLINE. CPAP SETTINGS: VT 450, FI02 30%, PEEP 5, RR 18. TUBE FEEDING RUNNING AT 45CC/HR. TOLERATING WELL. RESIDUAL OUTPUT <10CC. HOB ELEVATED >45 DEGREES. CENTRAL LINE SITE TO LEFT SUBCLAVIAN WNL, DRESSING CDI. PORTS PATENT X3 WITH BLOOD RETURN. WHITE IN TACT DRAINING CLEAR/YELLOW URINE. SOFT WRIST RESTRAINTS IN PLACE TO BUE. PT TRIES TO REMOVE LINES/AGITATED AT TIMES. SKIN SURROUNDING RESTRAINTS WNL. PULSES +2 BUE, CAP REFILLS <3 SEC, WARM, DRY. BED IN LOW POSITION. CALL LIGHT WITHIN REACH. WILL CONTINUE TO MONITOR.
--- NOTE | 2019-04-05 18:40 | NUR ---
PT LAYING IN BED. NO S/S OF ACUTE DISTRESS. NO SOB ON TRACH WITH CPAP. TRACH MIDLINE, INTACT. DRESSING CHANGED BY RT, CDI. NO S/S OF ACUTE RESPIRATORY DISTRESS. NO CHEST PAIN. BUE SOFT WRIST RESTRAINTS IN PLACE. SKIN WNL TO SITES, PT TRYING TO PULL ON LINES, AGITATED AT TIMES. TUBE FEEDING RUNNING TO LUQ PEG, PEG TUBE SITE WNL, DRESSING CDI, RESIDUAL OUTPUT 30CC. REPLACED. WHITE IN TACT DRAINING CLEAR/YELLOW URINE. BED IN LOW POSITION. CALL LIGHT WITHIN REACH. AT BEDSIDE. VS STABLE. WILL ENDORSE TO ONCOMING SHIFT.
[2019-04-06] VITALS (18 sets, daily range): BP systolic 111–146; BP diastolic 58–86
[2019-04-06 05:46] LABS: BASOPHIL % 0.2 % (0-2); PLATELET COUNT 206 x10^3mcL (130-400)
[2019-04-06 05:57] LABS: CALCIUM 9.3 mg/dL (8.5-10.1); CARBON DIOXIDE 23.6 mmol/L (21-32); CHLORIDE SERUM 111 mmol/L (98-107); CREATININE SERUM 0.5 mg/dL (0.6-1.0); GLUCOSE SERUM 136 mg/dL (74-106); POTASSIUM SERUM 3.9 mmol/L (3.5-5.1); SODIUM SERUM 146 mmol/L (136-145)
--- NOTE | 2019-04-06 07:14 | NUR ---
SBAR REPORT GIVEN TO CHIP PEARL.
--- NOTE | 2019-04-06 10:22 | NUR ---
IN AM STARTE CARE OF THIS PT, LYING ON BED WITH BIPAP ON. VS STABLE. PT WAS LETHARGIC, NOT FOLLOWS COMMAND, HX OF DEMENTIA. FAMILY, DAUGHTER WAS BEDSIDE. PT UNABLE TO SPEAK, LUNG SOUND DEMINISHED. NO SOB. ABDOMEN ROUND AND SOFT. NO N/V/D. GTUBE FEEDING ON. PT TOLERATED WELL.
--- NOTE | 2019-04-06 11:26 | NUR ---
Follow-up Nutrition Assessment- [facility] Dx: Sepsis and AMS Labs:(04/06) Na:146H, BH, H/H:9.3/28L Meds: Colace, Levaquin, Morphine, Pepcid, Sinemet, NS IV, Zofran and Heparin Current Nutrition Support: Vital AF 1.2 at 45ml/hr via OGT. FWF:50ml q 4hr. TF intake: (04/05) 882ml (04/06)495ml TF intake x 2 days:688ml (not meeting est needs) I/O: (04/05) 1473/885 (+588ml) (04/06)785/650(+135ml) Residuals: (04/05) <10ml(04/06)<10ml Weights:(04/05) 60.2kg weight increase possibly due to equipment on bed Skin: blanchable erytmea noted to sacrum Edema: +2 BUE/BLE Last BM: BM x 2 today (brown/soft) Per progress note 04/06, pt is awake on vent tolerating CPAP. Plan is LTAC evaluation, continue vent support, AM labs, dc sedatives and continue plan of care. Current TF Vital AF 1. 2 at 45ml/hr provides 1296kcal, 81g protein and 875ml free water. During visit, pt was seen undergoing CPAP trial with TF running at 45ml/hr. Pt's daughter at [facility] as well. Pt has been tolerating TF with <10ml residuals. Estimated Nutritional Needs based on actual body 54kg Vent in L/min: 8.51 Temperature:37.8C Energy: 1290 vs. 1620-1890kcal/day(PSU for vent support vs. 30-35kcal/kg of admit weight:54kg) Protein: 81-108g/day (1.5-2.0g/kg for sepsis) Fluid: 1300ml/day (1ml/kcal) or per doctor Nutrition Diagnosis 1. Increased nutrient needs related to increased metabolic demands as evidenced by pt with sepsis (ongoing) 2. Inadequate enteral infusion related to low TF rate as evidenced by pt only meeting 69% caloric needs and 100% protein needs. Intervention 1. Recommend increase TF rate of Vital AF 1.2 to 60ml/hr to provide 1728kcal, 108g protein. This meets 100% caloric and protein needs. Monitor/Evaluate Previous goal: TF intake at least 75% of estimated needs (not met) Goal: TF intake at least 75% of estimated needs Monitor: TF intake/tolerance, Labs, GI function and weights F/U in 2-3 days as high risk:04/08-
--- NOTE | 2019-04-06 11:27 | NUR ---
1. Recommend increase TF rate of Vital AF 1.2 to 60ml/hr to provide 1728kcal, 108g protein. This meets 100% caloric and protein needs.
--- NOTE | 2019-04-06 18:15 | NUR ---
PT'S URINE OUTPUT DECREASED TO 250ML/SHIFT. DR. BLOUNT WAS CALLED. LASIX 20MG IVP X 1 WAS ORDERED.
--- NOTE | 2019-04-06 19:15 | NUR ---
RECEIVED PT RESPONDS TO VERBAL/TACTILE STIMULI, UNABLE TO FOLLOW SIMPLE COMMANDS, NON VERBAL, EYES OPEN SPONTANEOUSLY. PUPILS 3MM BRISK RESPONSE TO LIGHT B/L, PERRLA. NO FACIAL DROOP. HX OF PARKINSONS, DEMENTIA, AND CVA.TRACHEOSTOMY INTACT ATTACHED TO VENT, SECURED. TRACHEA MIDLINE. NO DRAINAGE TO EENT. LEFT SUBCLAVIAN CVC, INTACT AND PORTS PATENT.TRACHEOSTOMY PORTEX 8.0 INTACT TO VENT SETTINGS: VCV CPAP FIO2 30%, RATE 18 , VT 450, PEEP 5. LUNG SOUNDS CLEAR TO BUL, DIMINISHED BASES. CHEST RISE/FALL SYMMETRIC, E/U BREATHING, NO ACUTE DISTRESS.CHEST WALL STABLE, NO S/S OF CHEST PAIN. S1/S2 SOUNDS.SKIN COLOR CONSISTENT WITH ETHNICITY, PULSES PALPABLE X4, CAP REFILL <3 SEC X4. NO EDEMA.TOTAL CARE. NO CONTRACTURES/DEFORMITIES NOTED. PT TURNED/REPOSITIONED Q2H. NO JOINT SWELLING/TENDERNESS. BUE SOFT WRIST RESTRAINTS FOR PT SAFETY PT REACHES FOR TRACHEOSTOMY WHEN OFF. AIR MATTRESS INTACT, BEDBOUND.LUQ PEG TUBE INTACT INFUSING VITAL AF @ 45 ML/HR FWF 100 ML Q4H. GRV=10ML AND REPLACED. NO S/S OF N/V.ABD SOFT/ROUND, ACTIVE BOWEL SOUNDS X4 QUADRANTS. NO BM NOTED.F/C DRAINING TO GRAVITY INTACT, CLEAR YELLOW URINE. NO VAGINAL DISCHARGE OR EDEMA NOTED.ERYTHEMA TO SACRAL AREA, OPTIFOAM INTACT TO SACRUM FOR PROTECTION. RIGHT UPPER CHEST DEEP STIMULATION FOR PARKINSONS IN PLACE NOTED. BED AT LOWEST SETTING, CALLLIGHT WITHIN REACH. HOB ELEVATED 30 DEGREES. FAMILY AT BEDSIDE. WILL CONT TO MONITOR.
--- NOTE | 2019-04-06 22:46 | NUR ---
FLACC=5 AT THIS TIME, MEDICATED WITH MORPHINE IVP PER EMAR.
[2019-04-07] VITALS (15 sets, daily range): BP systolic 118–149; BP diastolic 63–78
--- NOTE | 2019-04-07 04:15 | NUR ---
PT SLEEPING AT THIS TIME, NO S/S OF ANY DISTRESS, EASILY AROUSABLE TO STIMULI. CHEST RISE/FALL SYMMETRIC, E/U BREATHING NOTED. PT TRACHEOSTOMY REMAINS INTACT TO VENT ON VCV-CPAP. TRACHEOSTOMY CARE PROVIDED. PT ATTACHED TO FULL MATERIAL INSPECTOR, CONTINUOUS PULSE OXIMETRY. LEFT SUBCLAVIAN CVC, CDI. F/C DRAINING TO GRAVITY YELLOW URINE, INTACT. BED AT LOWEST SETTING, CALL LIGHT WITHIN REACH, HOB ELEVATED 30 DEGREES. FAMILY AT BEDSIDE. BUE SOFT WRIST RESTRAINTS REMAIN ON FOR PT SAFETY (SKIN/PULSE WNL), SHE REACHES FOR TRACHEOSTOMY, REMOVES EQUIPMENT AND REACHES FOR PEG TUBE. WILL CONT TO MONITOR.
--- NOTE | 2019-04-07 05:15 | NUR ---
PROVIDED PT WITH FULL BED BATH, TOTAL CARE PROVIDED, WHITE CARE PROVIDED. CHG WIPES WIPED TO PT AND L SUBCLAVIAN CVC. CHUCKS, GOWN, LINEN CHANGED. PT TOLERATED WELL. BED AT LOWEST POSITION, CALL LIGHT WITHIN REACH, HOB ELEVATED 30 DEGREES. PT TRACHEOSTOMY INTACT TO VENT.
[2019-04-07 06:02] LABS: BASOPHIL % 0.3 % (0-2); PLATELET COUNT 211 x10^3mcL (130-400)
[2019-04-07 06:09] LABS: RED CELL DISTRIBUTION WIDTH 15.4 % (11.5-14.5)
[2019-04-07 06:29] LABS: CALCIUM 8.7 mg/dL (8.5-10.1); CARBON DIOXIDE 30.7 mmol/L (21-32); CHLORIDE SERUM 104 mmol/L (98-107); CREATININE SERUM 0.5 mg/dL (0.6-1.0); GLUCOSE SERUM 142 mg/dL (74-106); POTASSIUM SERUM 3.6 mmol/L (3.5-5.1); SODIUM SERUM 140 mmol/L (136-145)
--- NOTE | 2019-04-07 07:10 | NUR ---
GAVE REPORT TO RYANNE MARTINEZ. UPDATES GIVEN, QUESTIONS ANSWERED.
--- NOTE | 2019-04-07 07:13 | NUR ---
PT LYING IN SEMI FOWLERS POSITION, RESTING WITH EYES CLOSED. EASILY AROUSABLE TO VERBAL STIMULI, FOLLOWS COMMANDS AND OPENS EYES SPONT. NO FACIAL DROOP. 8.0 PORTEX TRACH ATTACHED TO VENT CPAP MODE. SMALL BROWN DISCHARGE NOTED FROM TRACH SITE. LEFT SUBCLAVIAN TLC CVC SITE WNL AND DRESSING CDI. PEG TUBE ATTACHED TO VITAL AF TF @ 45 ML/HR WITH 100 ML FWF Q4H. SCDS TO BLE. F/C IN PLACE, DRAINING TO GRAVITY AND NO DEPENDENT LOOPS. URINE LIGHT YELLOW AND CLEAR. DAUGHTER, TIARA, AT BEDSIDE
--- NOTE | 2019-04-07 07:30 | NUR ---
DR. LE AT BEDSIDE TO ASSESS PT. UPDATED ON PT'S STATUS AND CONDITION. ADDRESSED FAMILY'S QUESTIONS.
--- NOTE | 2019-04-07 10:55 | NUR ---
PLACED PT ON T-BAR TRIAL. SETTINGS 5L 28% FIO2. PT TOLERATING WELL.
--- NOTE | 2019-04-07 19:15 | NUR ---
RECEIVED PT RESPONDS TO VERBAL/TACTILE STIMULI, UNABLE TO FOLLOW SIMPLE COMMANDS, NON VERBAL, EYES OPEN SPONTANEOUSLY. PUPILS 3MM BRISK RESPONSE TO LIGHT B/L, PERRLA. NO FACIAL DROOP. HX OF PARKINSONS, DEMENTIA, AND CVA.TRACHEOSTOMY INTACT ATTACHED TO VENT, SECURED. TRACHEA MIDLINE. NO DRAINAGE TO EENT. LEFT SUBCLAVIAN CVC, INTACT AND PORTS PATENT X2, BLUE PORT HAS RESISTANCE TO FLUSH.TRACHEOSTOMY PORTEX 8.0 INTACT TO VENT SETTINGS: VCV AC FIO2 30%, RATE 18 VT 450, PEEP 5. LUNG SOUNDS CLEAR TO BUL, DIMINISHED BASES. CHEST RISE/FALL SYMMETRIC, E/U BREATHING, NO ACUTE DISTRESS. TRACHEOSTOMY CARE PROVIDED, MODERATE BROWN DRAINAGE TO SITE, PINK SKIN AROUND SITE.CHEST WALL STABLE, NO S/S OF CHEST PAIN. S1/S2 SOUNDS.SKIN COLOR CONSISTENT WITH ETHNICITY, PULSES PALPABLE MOD X4, CAP REFILL <3 SEC X4. NO EDEMA. NS INFUSING @ 30 ML/HR.TOTAL CARE. NO CONTRACTURES/DEFORMITIES NOTED. PT TURNED/REPOSITIONED Q2H. NO JOINT SWELLING/TENDERNESS. BUE SOFT WRIST RESTRAINTS FOR PT SAFETY PT REACHES FOR TRACHEOSTOMY WHEN OFF. AIR MATTRESS INTACT, BEDBOUND.LUQ PEG TUBE INTACT INFUSING VITAL AF @ 45 ML/HR FWF 100 ML Q4H. GRV=10ML AND REPLACED. NO S/S OF N/V.ABD SOFT/ROUND, ACTIVE BOWEL SOUNDS X4 QUADRANTS. NO BM NOTED. PEG TUBE SITE WNL, CDI.ABD SOFT/ROUND, ACTIVE BOWEL SOUNDS X4 QUADRANTS. NO BM NOTED. PEG TUBE SITE WNL, CDI.F/C DRAINING TO GRAVITY INTACT, CLEAR YELLOW URINE. NO VAGINAL DISCHARGE OR EDEMA NOTED.BLANCHABLE ERYTHEMA TO SACRAL AREA, MINOR FLAKING NOTED, OPTIFOAM CDI. UPPER CHEST DEEP STIMULATION FOR PARKINSONS IN PLACE NOTED. BED AT LOWEST SETTING, CALL LIGHT WITHIN REACH. HOB ELEVATED 30 DEGREES. WILL CONT TO MONITOR.
[2019-04-08] VITALS (14 sets, daily range): BP systolic 109–155; BP diastolic 63–84; Ht 157.5 cm; Wt 54.4 kg
--- NOTE | 2019-04-08 00:25 | NUR ---
DR. CARMEN AT BEDSIDE FOR ASSESSMENT AND UPDATES PROVIDED. NO NEW ORDERS AT THIS TIME.
[2019-04-08 05:36] LABS: BASOPHIL % 0.3 % (0-2); PLATELET COUNT 201 x10^3mcL (130-400)
--- NOTE | 2019-04-08 05:45 | NUR ---
CENTRAL LINE LEFT SUBCLAVIAN DRESSING CHANGED AT THIS TIME USING STERILE TECHNIQUE, SITE SHOWS NO S/S OF REDNESS OR S/S OF INFECTION. WILL CONT TO MONITOR.
[2019-04-08 05:49] LABS: CALCIUM 8.8 mg/dL (8.5-10.1); CARBON DIOXIDE 25.1 mmol/L (21-32); CHLORIDE SERUM 108 mmol/L (98-107); CREATININE SERUM 0.5 mg/dL (0.6-1.0); GLUCOSE SERUM 127 mg/dL (74-106); POTASSIUM SERUM 3.6 mmol/L (3.5-5.1); SODIUM SERUM 144 mmol/L (136-145)
--- NOTE | 2019-04-08 07:20 | NUR ---
GAVE REPORT TO RYANNE COREASMENTALLY IMPAIRED TEACHER, UPDATES PROVIDED, QUESTIONS ANSWERED. ENDORSED CARE.
--- NOTE | 2019-04-08 09:37 | NUR ---
PATIENT ROUNDS WITH DR. MOREJON AND RESIDENTS. CHARGE NURSE AND PRIMARY NURSE AT BEDSIDE. UPDATES PROVIDED AND POC DISCUSSED.
--- NOTE | 2019-04-08 10:40 | NUR ---
PLACED PT ON CPAP +5 WITH PSV +8 AND FIO2 30%.
--- NOTE | 2019-04-08 16:13 | NUR ---
0730 PT RECIEVED HAVING PASSED LARGE LOOSE, NOT LIQUID STOOL IN BED/INCONTINENT/PT TRACKS WITH EYES, WITHDRAWS FROM PAIN/PT SEEMS TO NOT UNDERSTAND WHAT DAUGHTER SAYS EVEN IN THEIR APACHE TRIBE OF [place] LANGUAGE/PT PUPILS EQUAL DEYSI, PT TOLERATING TF NO RESIDUAL, PT AFEBRILE, TOLERATING VENT/PT IN ZERO APPARENT DISTRESS/TRACHED ON THE VENT//1350 PT TO CPAP/NOW TOLERATING WELL/PT RR AND 02 SAT NOT CHANGED/PT IN ZERO APPARENT DISTRESS/DROWSY/PT PASSED SECOND BM ON CPAP/CLEANED PT WHO TOLERATED WELL/VS STABLE/ORAL CARE GIVEN//MW
--- NOTE | 2019-04-08 16:48 | NUR ---
PT NOW ON T PIECE AND TOLERATING WELL AT 1216/PT 02 SAT 99% AND PT HR./BP AND RR THE SAME BEFORE REMOVING FROM VENT//PT IN ZERO APPARENT DISTRESS WITH OCCASIONAL SECRETIONS//TOLERATING TF WELL, NO RESIDUAL//MW
--- NOTE | 2019-04-08 19:15 | NUR ---
RECEIVED REPORT FROM RYANNE AYALA. POC DISCUSSED. NURSING UPDATES. SEE SHIFT ASSESSMENT FOR ASSESSMENT.
--- NOTE | 2019-04-08 19:36 | NUR ---
NOTIFIED PER DAUGHTER TO NOT ALLOW FOR TRANSFER UNTIL SHE SPEAKS WITH THE DOCTORS. SHE NOTED SHE WOULD BE ATTEMPTING TO COME IN @ 0800. WILL ENDORSE TO ONCOMING NURSE.
--- NOTE | 2019-04-08 23:20 | NUR ---
PT OPEN EYES FOR FIRST NOTED TIME. NO S/S OF PAIN OR DISTRESS. PT RESTING CALMLY IN BED W/ @ BEDSIDE.
[2019-04-09] VITALS (9 sets, daily range): BP systolic 115–145; BP diastolic 41–81
--- NOTE | 2019-04-09 04:51 | NUR ---
CLEANED PT, AND LINENS CHANGED. PERFORMED ORAL CARE. PT TOLERATED WELL. WILL ENDORSE TO MORNING SHIFT.
[2019-04-09 06:09] LABS: BASOPHIL % 0.4 % (0-2); PLATELET COUNT 208 x10^3mcL (130-400)
[2019-04-09 06:11] LABS: CALCIUM 8.6 mg/dL (8.5-10.1); CARBON DIOXIDE 26.1 mmol/L (21-32); CHLORIDE SERUM 106 mmol/L (98-107); CREATININE SERUM 0.4 mg/dL (0.6-1.0); GLUCOSE SERUM 115 mg/dL (74-106); POTASSIUM SERUM 3.7 mmol/L (3.5-5.1); SODIUM SERUM 142 mmol/L (136-145)
[2019-04-09 06:13] LABS: RED CELL DISTRIBUTION WIDTH 15.1 % (11.5-14.5)
--- NOTE | 2019-04-09 07:26 | NUR ---
RECEIVED PT'S REPORT FROM LEAVING NURSE. PT'S DAUGHTER AND AT BED SIDE. PT IS TRACHED ON VENTILATOR. PT IS AWAKE AT THIS TIME, FOLLOW SIMPLE COMMAND. WHITE IN PLACE, DRAINING VIA GRAVITY. PEG TUBE IN PLACE, ON VITAL AF 45ML/HR. IVF NS INFUSING AT 30ML/HR. WILL CONTINUE TO MONITOR.
--- NOTE | 2019-04-09 08:35 | NUR ---
PLACED PT ON CPAP +5 WITH PSV +8 AND FIO2 30%.
--- NOTE | 2019-04-09 11:00 | NUR ---
PT IS SWITCHED FROM VENTILATOR TO T PIECE ON FIO2 30%. PT IS AWAKE WITH HER DAUGHTER AND AT BED SIDE. PT TOLERATES WELL AT THIS TIME.
--- NOTE | 2019-04-09 11:11 | NUR ---
MADE PT'S DAUGHTER AWARE PT IS SCHEDULED TO TRANFER TODAY AFTER 1900.
[2019-04-09] MEDS ORDERED: TYL325 PO (12:34)
[2019-04-09] MEDS ORDERED: IPRATROPIUM BROM3 M2 HHN (12:34)
[2019-04-09] MEDS ORDERED: HEP5I SC (12:34)
[2019-04-09] MEDS ORDERED: MOR2I IV (12:34)
[2019-04-09] MEDS ORDERED: ZOFI IV (12:35)
[2019-04-09] MEDS ORDERED: COL100UDC NG (12:35)
[2019-04-09] MEDS ORDERED: SIN25100 NG (12:35)
[2019-04-09] MEDS ORDERED: [UNRECOGNIZED DRUG - CODE] NG ×2 (12:35)
[2019-04-09] MEDS ORDERED: PEP20I IV (12:36)
--- NOTE | 2019-04-09 14:09 | NUR ---
Follow-up Nutrition Assessment: IC05/ RHEA UGNN Dx: Sepsis, altered mental status PMHx: HTN, Parkinson's disease, Hx of stroke Labs: (04/09) BG 115H, BUN 20H, HGB 9.6L, WBC 3.8L Meds: Colace, Levaquin, Pepcid, Sinemet, Zofran, heparin Diet: TF Vital AF 1.2 @ 10ml/hr, goal 30 ml/hr. FWF 100 ml Q4H PO Intake: NPO Weights: (04/09) 54 kg, (04/04) 58 kg (04/02) 53.4 kg, (04/01) 61 kg Skin: optifoam to sacral Rick: 15 I/Os: 1355/935 Edema: none GI: PEG tube Last BM: 04/03 RDN Visit (04/09): Patient's daughter was at bedside and she said that she wanted the tube feeding rate to be gradually increased. She said that when patient was in SNF, they increased the tube feeding to 65 ml/hr and pt ended up in pneumonia. She said that patient does not need as much calories as pt is bed-ridden. RD explained to her that patient is under catabolic stress and therefore needs additional calories. Vital AF was running @ 45ml/hr. Per RN [place], pt is tolerating tube feeding well with residulas of <10ml. Per Progress note (04/08), dc planning to [facility] once bed available, continue vent support and ivabx, continue current plan of care. Estimated Nutritional Needs based on actual body weight 58 kg Energy: 6501-3441 vs 1078 kcal/d (30-35 kcal/kg vs [employer] [place] [employer] Equation (PSU) 2003b)- sepsis Protein: 87-104 g/d (1.5-1.8 g/kg)- sepsis Fluid: 4604-6684 (1ml/kcal) or per MD Nutrition Diagnosis 1. Increased nutrient needs related to metabolic demands as evidenced by estimated calories and protein needs. (ongoing) 2. Inadequate enteral nutrition infusion related to current TF rate of 30ml/hr as evidenced by pt not meeting estimated calorie and protein needs.(improving) Intervention 1. Increase Vital AF 1.2 @ 60ml/hr to provide 1728 kcal and 108g protein. FWF 50ml Q4H. This will provide 1728 kcal and 86g protein. This meets >90% of estimated calorie and protein needs of the patient. Monitor/Evaluate Goal: Have pt meet at least 75% of estimated needs Monitor: PO intake, Labs, GI function F/U in 2-3 days as high risk 04/11-
--- NOTE | 2019-04-09 17:16 | NUR ---
TELEPHONE ORDER FROM [facility] TO [place] [facility] FOR TRANSFER. MADE AWARE TO PRIMARY RYANNE MARCANO.
--- NOTE | 2019-04-09 19:14 | NUR ---
PT IS GOING TO TRANSFER TO [place] [facility]. PT'S FAMILY MEMBERS AWARE AND AGREE. DRESSING ON TRACHEOSTOMY, CENTRAL LINE CHANGED. WHITE CARE APPLIED. SACRAL OPTIFORM CHANGED. PHOTO TAKEN. WILL ENDORSE RECEIVING NURSE TO CONTINUE PT TRANSFER.
--- NOTE | 2019-04-09 19:15 | NUR ---
RECEIVED REPORT FROM LATOYA PEARL. WILL RESUME CARE.
--- NOTE | 2019-04-09 19:55 | NUR ---
GAVE REPORT TO CAROLEE PEARL AT [facility] FOR PT TRANSFER. ALL QUESTIONS AND CONCERNS ADDRESSED. PT IS TO BE TRANSFERRED TO ROOM 103.
--- NOTE | 2019-04-09 20:20 | NUR ---
GAVE REPORT TO FARRUKH LAO FROM [facility] FOR PT TRANSFER TO [facility]. PT'S BREATHING IS E/U. NAD DISTRESS NOTED.
== END 2019-04-09 20:22 | DRG 4 ==
LOC: ED 07:49 → DU 10:21 → IC 10:21
PROVIDERS: Emergency Medicine; Family Medicine; Surgery; ADMIT Internal Medicine
PROC: 5A1955Z Respiratory Ventilation, Greater than 96 Consecutive Hours (ICD-10-PCS; 2019-03-22)
PROC: 0BH17EZ Insertion of Endotracheal Airway into Trachea, Via Natural or Artificial Opening (ICD-10-PCS; 2019-03-22)
PROC: 05H633Z Insertion of Infusion Device into Left Subclavian Vein, Percutaneous Approach (ICD-10-PCS; 2019-03-22)
PROC: 0B110F4 Bypass Trachea to Cutaneous with Tracheostomy Device, Open Approach (ICD-10-PCS; principal; 2019-04-03 08:30)
DX: A41.9 Sepsis, unspecified organism (principal); J69.0 Pneumonitis due to inhalation of food and vomit; J15.211 Pneumonia due to Methicillin susceptible Staphylococcus aureus; J15.6 Pneumonia due to other Gram-negative bacteria; J96.01 Acute respiratory failure with hypoxia; E43 Unspecified severe protein-calorie malnutrition; J96.22 Acute and chronic respiratory failure with hypercapnia; B37.49 Other urogenital candidiasis; R13.10 Dysphagia, unspecified; J44.9 Chronic obstructive pulmonary disease, unspecified; R41.82 Altered mental status, unspecified; R00.1 Bradycardia, unspecified; I48.0 Paroxysmal atrial fibrillation; E89.0 Postprocedural hypothyroidism; G20 Parkinson's disease; F02.80 Dementia in other diseases classified elsewhere, unspecified severity, without behavioral disturbance, psychotic disturbance, mood disturbance, and anxiety; Z93.1 Gastrostomy status; Z86.73 Personal history of transient ischemic attack (TIA), and cerebral infarction without residual deficits
CPT/HCPCS: 36600; 94150; A4628; G0378; J0456; J0696; J1644; J1940; J1956; J2001; J2185; J2250; J2270; J2405; J2704; J3010; J3370; J3480; J3490; J7030; J7050; J7120; J7620; Q0092